=== PATIENT | female | born 1960 | race Caucasian/White ===

== ENCOUNTER 2018-10-06 10:02 | Emergency (ER) | payer OTHER, SELFPAY ==
[2018-10-06 10:04] VITALS: BP 122/72; PULSE 70; RESP 16; TEMP 36.6; O2SAT 98; BMI 20.1
--- NOTE | 2018-10-06 10:19 | ED.VISSUMM ---
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 She does indicate a prior history for neck cervical disc disorder that is not troubling her right now she points directly to the left forehead is a focal area of her pain no blood thinners no other complaints she took ibuprofen prior to arrival no numbness weakness or paresthesias no change in vision Physical Examination: [] She complains of discomfort to the left forehead area her vital signs are unremarkable General, no distress resting comfortably HEENT is generally unremarkable there is mild discomfort to the left forehead The neck is supple no adenopathy Cardiovascular, regular rate and rhythm Lungs, clear bilateral Abdomen, soft nontender Extremities, no clubbing cyanosis or edema Neurologic, awake alert answering questions appropriately moving all 4 extremities cranial nerves motor exam neurologic exam are entirely unremarkable her speech is clear and easy to understand she denies any loss of functional abilities Conversation with her discussed CT imaging she is deferred that at this time I explained the concept of concussion she will use [id number] pain meds ice follow-up with her family doctor in the [employer] system and return for change in symptoms Test Results: [] Emergency Department Course and Treatment: [] Treatment Plan: [] Disposition: [] Home stable Impression: [] Head injury This note was generated with [employer] dictation software. It may contain incorrect words, spelling, and punctuation that were not noted in review of the chart prior to signing ED Disposition - Plan for ED Patient: Chief Complaint: Head Injury Referrals: Sofie Vergara, SHER-C [Primary Care Provider] -
--- NOTE | 2018-10-06 10:22 | DCINST.ED_ITS ---
ED Disposition - Plan for ED Patient: Chief Complaint: Head Injury Instructions: ED Head Injury Closed, ED Concussion Referrals: Sofie Vergara NP-C [Primary Care Provider] - [facility] [GROUP OF PHYSICIANS] -
[2018-10-06] MEDS: Ondansetron ODT 4 MG Tablet PO (11:20)
--- NOTE | 2018-10-06 11:30 | ED.RN ---
called and talked to aditya hagen, forestry technical officer at [facility], he reports that the pt does not need drug testing.
[2018-10-06 11:34] VITALS: PULSE 62; RESP 18; O2SAT 98
--- OUTSIDE RECORDS SUMMARY | 2018-11-22 13:54 | XMS RPT_ITS ---
:1960 Author Organization [place] Care Team Providers Name Role Phone Enrico Huffman Attending Unavailable Rishi Levine Primary Care Unavailable RISHI LEVINE Attending Unavailable DARWIN CASAREZ Attending Unavailable AVIS BERNAL Attending Unavailable DARWIN CASAREZ Referring Unavailable FILE, NADIA Steinberg Attending Unavailable AVIS BERNAL Referring Unavailable FILE, NADIA Steinberg Referring Unavailable AYDE BARRAGAN Attending Unavailable AVIS BERNAL Referring Unavailable DARWIN CASAREZ Admitting Unavailable DARWIN CASAREZ Attending Unavailable DARWIN CASAREZ Referring Unavailable RISHI LEVINE Referring Unavailable WHITNEY ANGLIN (PAAbdielC) Attending Unavailable MONET SHUKLA (BANK SALES AND SERVICE MANAGER) Attending Unavailable RISHI LEVINE Referring Unavailable LORI ANDREA Referring Unavailable SHAHANA LEO (PT) Attending Unavailable RISHI LEVINE Referring Unavailable LORI ANDRAE Attending Unavailable ZULLY, LORI Ny Referring Unavailable VALENTINA ANDREAHLEEN D Referring Unavailable DARWIN CASAREZ Attending Unavailable David SAEZ (PA-C) Attending Unavailable RISHI LEVINE Referring Unavailable LORI ANDREA Attending Unavailable FILE, NADIA Steinberg Attending Unavailable GILBERT, AVIS A Referring Unavailable VALENTINA ANDREAHLCATARINA Alejandra Attending Unavailable ANDREA, LORI D Referring Unavailable ANDREA, LORI D Attending Unavailable ANDREA, LORI D Referring Unavailable PROBLEMS PROBLEMS DATE TYPE CONDITION / CODE ATTENDING STATUS SOURCE 10/15/2018 Active Varicose veins of [facility] right lower Clinic Main extremity with pain [place] / I83.811(ICD-10) Repository 10/11/2018 Unknown S09.90XA - Jwayyed, Active [place] Unspecified injury [facility], initial Hospital encounter / Repository S09.90XA(ICD-10) 08/18/2018 Active Varicose veins of [facility] bilateral lower Clinic Main extremities with [place] other complications Repository / I83.893(ICD-10) 07/23/2018 Active Encounter for [facility] screening for Clinic Main lipoid disorders / [place] Z13.220(ICD-10) Repository 04/27/2018 Active Encounter for [facility] screening mammogram Clinic Main for malignant [place] neoplasm of breast Repository / Z12.31(ICD-10) 01/29/2018 Active 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, 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 or M [facility] Main radiculopathy, [place] cervical region / Repository M47.812(ICD-10) 01/29/2018 Active Age-related [facility] osteoporosis Clinic Main without current [place] pathological Repository fracture / M81.0(ICD-10) 01/29/2018 Active Other [facility] (current) drug Clinic Main therapy / [place] Z79.899(ICD-10) Repository 01/29/2018 Active Unknown / NADIA SHELTON Active [place] UNK(Unknown) A Clinic Main [place] Repository PROCEDURES PROCEDURES No Procedure Records FoundRESULTS RESULTS PROGRESS Observed: 11/08/2018 Status: COMPLETED Source: [place] 4:52 PM CLINIC MAIN CAMPUS REPOSITORY HNO ID: [id number] Author: Lori Andrea Service: (none) Author Type: Physician Type: Progress Notes Filed: 11/16/2018 6:23 PM Note Text: This office note has been dictated. Lori Andrea DO CNOV Observed: 11/08/2018 Status: COMPLETED Source: [place] 11:45 AM CLINIC MAIN CAMPUS REPOSITORY Office Visit (VASSWS) HIRA BARCLAY ([id number]) 1960 Date Time Provider Department 11/08/18 11:45 AM LORI ANDREA During your visit today, we recorded the following information about you: Pulse Blood pressure 76/minute 120/79 Lori Andrea DO 11/15/2018 9:33 AM Signed NAME: HIRA BARCLAY CLINIC NO: [id number] DATE OF SERVICE: 11/08/2018 Subjective: Ms. Barclay is here to follow up on right greater saphenous EVLT for symptomatic varicose veins. She does have some small remaining varicose veins with overlying spider veins. Overall, she notices improvement in her symptoms. 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 Objective: Her vital signs are stable. She is in no distress. She has a healed venous access site. She does have a small varicose vein and overlying spider veins. Assessment/Plan: Symptomatic varicose veins. Ms. Barclay has some remaining symptomatic, tender small varicose veins that would benefit from ultrasound-guided sclerotherapy. Reviewed the procedure with the patient including risks, benefits and alternatives and she is agreeable and would like to proceed. We will have the office arrange and schedule. Lori Andrea D.O. KB/089 Audio #: [id number] Date Dictated: 11/08/2018 12:05:54 Date Typed: 11/12/2018 12:55:26 Date Revised: Lori Andrea DO 11/16/2018 6:23 PM Signed This office note has been dictated. Lori Andrea DO [employer] Erector: Transcribed Clinic Note (audra) ID: [id number] Author: LORI ANDREA Signed by LORI ANDREA DO on 11/15/2018 at 9:33 AM Document text: NAME: HIRA BARCLAY CLINIC NO: [id number] DATE OF SERVICE: 11/08/2018 Subjective: Ms. Barclay is here to follow up on right greater saphenous EVLT for symptomatic varicose veins. She does have some small remaining varicose veins with overlying spider veins. Overall, she notices improvement in her symptoms. 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 Objective: Her vital signs are stable. She is in no distress. She has a healed venous access site. She does have a small varicose vein and overlying spider veins. Assessment/Plan: Symptomatic varicose veins. Ms. Barclay has some remaining symptomatic, tender small varicose veins that would benefit from ultrasound-guided sclerotherapy. Reviewed the procedure with the patient including risks, benefits and alternatives and she is agreeable and would like to proceed. We will have the office arrange and schedule. Lori Andrea D.O. KB/089 Audio #: [id number] Date Dictated: 11/08/2018 12:05:54 Date Typed: 11/12/2018 12:55:26 Date Revised: Display document [id number] only Referring Provider: LORI ANDREA [[id number]] Allergies As of Date: 11/08/2018 Noted Allergy Reaction corn pollen [Other] 01/23/2009 Comments: asthma GABAPENTIN 03/17/2018 14 - Other: See Comments Comments: Dizziness HOUSE DUST 01/23/2009 12 - Shortness of Breath Comments: asthma SHAMPOOS (PARACHLOROMETAXYLENOL) 01/05/2006 2 - Rash Date Reviewed: 11/08/2018 Reviewed by: Martin Ortega RN - Fully Assessed Reason for Visit: Established Patient [175] Primary Visit Diagnosis:Symptomatic varicose veins of both lower extremities [I83.893] Prescriptions as of 11/08/2018 Sig: FLUTICASONE 250 MCG-SALMETERO* Inhale 1 Puff as instructed t* CHOLECALCIFEROL (VITAMIN D3) * Take 1 capsule by mouth once * METHOCARBAMOL 500 MG TABLET Take 1 tablet by mouth twice * NORTRIPTYLINE 10 MG CAPSULE Take 1 tab nightly for 1 week* ALENDRONATE 70 MG TABLET Take 1 tablet by mouth once e* TYLENOL ARTHRITIS PAIN ORAL Take 1 tablet by mouth three * * MULTIVITAMIN TABLET Take one(1) tablet daily. Problem List As Of Date 11/08/2018 Noted Resolved Herniated cervical disc [M50.20] INVALID FOR* More... Unspecified asthma [J45.909] INVALID FOR* Arthritis [M19.90] INVALID FOR* Osteopenia [M85.80] INVALID FOR*10/30/2017 Postmenopausal atrophic vaginitis [N95.2] INVALID FOR* Age-related osteoporosis without current pathol*INVALID FOR* More... Acute midline thoracic back pain [M54.6] INVALID FOR* Cervical spondylosis without myelopathy [M47.81*INVALID FOR* More... Bilateral occipital neuralgia [M54.81] INVALID FOR* Encounter Status:Closed by LORI ANDREA DO on 11/16/18 PROGRESS Observed: 11/08/2018 Status: COMPLETED Source: [place] 12:00 AM [facility] MAIN [place] REPOSITORY HNO ID: [id number] Author: Lori Andrea Service: Vascular Surgery Author Type: Physician Type: Progress Notes Filed: 11/15/2018 9:33 AM Note Text: NAME: HIRA BARCLAY [facility] NO: [id number] DATE OF SERVICE: 11/08/2018 Subjective: Ms. Barclay is here to follow up on right greater saphenous EVLT for symptomatic varicose veins. She does have some small remaining varicose veins with overlying spider veins. Overall, she notices improvement in her symptoms. 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 Objective: Her vital signs are stable. She is in no distress. She has a healed venous access site. She does have a small varicose vein and overlying spider veins. Assessment/Plan: Symptomatic varicose veins. Ms. Barclay has some remaining symptomatic, tender small varicose veins that would benefit from ultrasound-guided sclerotherapy. Reviewed the procedure with the patient including risks, benefits and alternatives and she is agreeable and would like to proceed. We will have the office arrange and schedule. Lori Andrea D.O. KB/089 Audio #: [id number] Date Dictated: 11/08/2018 12:05:54 Date Typed: 11/12/2018 12:55:26 Date Revised: PROGRESS Observed: 10/08/2018 Status: COMPLETED Source: [place] 12:24 PM [place] [facility] REPOSITORY O ID: [id number] Author: Lori Andrea Service: (none) Author Type: Physician Type: Progress Notes Filed: 10/08/2018 12:26 PM Note Text: Date and Start/End times of Surgery: October 08, 2018 Surgeon: Lori Andrae DO Banquet Lead(s): Sidney Means Procedure(s): EVLT ablation of the right great saphenous vein Anesthesia: Local with 1% lidocaine, and tumescence anesthesia using 40 cc of 1% lidocaine + 20 cc of 8.4% sodium bicarbonate in 1000 cc of normal saline Preoperative Diagnosis: Symptomatic varicose veins right leg. Postoperative Diagnoses: Symptomatic varicose veins right leg. Operative Indications: The patient is a 58 year old female with painful varicose veins, especially on the right leg. Noninvasive vascular laboratory studies revealed valvular incompetence in the right great saphenous vein. Options of therapy were discussed. She elected to proceed with surgery. Operative Findings: Varicose veins right leg. Procedure Narrative: The patient was seen in the preoperative area, consent was obtained, and 5 mg of Valium was given po. She was then taken to the procedure room and placed in supine position. The patient's right lower extremity was prepped with chloraprep and draped in the usual sterile fashion. Attention was first directed to the saphenous vein just at mid calf. Local anesthesia was obtained by injecting Lidocaine 1%. Under ultrasound guidance, the saphenous vein was accessed using the Micro-Access set. A 0.035 inch wire was passed through the sheath to the level of the saphenofemoral junction. The sheath was removed, and a 4-[place] sheath and dilator were passed over the guidewire to the level of the saphenofemoral junction. The guidewire and dilator were removed and the AngioDynamics EVLT gold-tipped laser fiber was passed through the sheath to the level of the saphenofemoral junction. The laser fiber was secured to the sheath. Under ultrasound guidance, the tip of the laser fiber was positioned approximately 3 cm distal to the saphenofemoral junction and just distal to the entrance of the superficial epigastric vein. Under ultrasound guidance, tumescence solution was injected into the fascial sheath containing the saphenous vein. The tumescence solution consisted of normal saline, lidocaine, and sodium bicarbonate. A total of 600 mL was injected. The laser power was then set at 7 ramos. The laser was energized and withdrawn at a rate of 1 cm per 9 seconds for the first several cm. Then, the rate of withdrawal was increased to 1 cm per 6 seconds for the remainder of the 60 cm treated. A total of 3007 joules were delivered over 430 seconds to the 60 cm of vein treated. This averaged 50 joules per cm. The sheath and laser fiber were removed. Pressure was held at the site of catheter insertion for 3 minutes. The vein was again interrogated using duplex ultrasound. The vein was completely collapsed and the orta were thickened. A Tegaderm was applied to the catheter insertion site. A 20-30 mm Hg thigh high compression stocking with a waist belt was put on the leg. The patient tolerated the procedure well. Postoperative instructions were given. Surgeon/Practitioner Performing Venous Access: Lori Andrea DO Surgeon/Practitioner Performing Ablation: Lori Andrea DO Estimated Blood Loss: none Drains: none Prosthetic Devices, Grafts, or Implants: none Specimens: none Complications: none CNOV Observed: 10/08/2018 Status: COMPLETED Source: [place] 11:00 AM [place] [facility] REPOSIT[facility] Office Visit (VASSMD) HIRA BARCLAY ([id number]) 1960 F Date Time Provider Department 10/08/18 11:00 AM LORI ANDREA VASBONG During your visit today, we recorded the following information about you: Lori Andrea DO 10/08/2018 12:26 PM Signed Date and Start/End times of Surgery: October 08, 2018 Surgeon: Lori Andrea DO Banquet Lead(s): Sidney Means Procedure(s): EVLT ablation of the right great saphenous vein Anesthesia: Local with 1% lidocaine, and tumescence anesthesia using 40 cc of 1% lidocaine + 20 cc of 8.4% sodium bicarbonate in 1000 cc of normal saline Preoperative Diagnosis: Symptomatic varicose veins right leg. Postoperative Diagnoses: Symptomatic varicose veins right leg. Operative Indications: The patient is a 58 year old female with painful varicose veins, especially on the right leg. Noninvasive vascular laboratory studies revealed valvular incompetence in the right great saphenous vein. Options of therapy were discussed. She elected to proceed with surgery. Operative Findings: Varicose veins right leg. Procedure Narrative: The patient was seen in the preoperative area, consent was obtained, and 5 mg of Valium was given po. She was then taken to the procedure room and placed in supine position. The patient's right lower extremity was prepped with chloraprep and draped in the usual sterile fashion. Attention was first directed to the saphenous vein just at mid calf. Local anesthesia was obtained by injecting Lidocaine 1%. Under ultrasound guidance, the saphenous vein was accessed using the Micro-Access set. A 0.035 inch wire was passed through the sheath to the level of the saphenofemoral junction. The sheath was removed, and a 4-[place] sheath and dilator were passed over the guidewire to the level of the saphenofemoral junction. The guidewire and dilator were removed and the AngioDynamics EVLT gold-tipped laser fiber was passed through the sheath to the level of the saphenofemoral junction. The laser fiber was secured to the sheath. Under ultrasound guidance, the tip of the laser fiber was positioned approximately 3 cm distal to the saphenofemoral junction and just distal to the entrance of the superficial epigastric vein. Under ultrasound guidance, tumescence solution was injected into the fascial sheath containing the saphenous vein. The tumescence solution consisted of normal saline, lidocaine, and sodium bicarbonate. A total of 600 mL was injected. The laser power was then set at 7 ramos. The laser was energized and withdrawn at a rate of 1 cm per 9 seconds for the first several cm. Then, the rate of withdrawal was increased to 1 cm per 6 seconds for the remainder of the 60 cm treated. A total of 3007 joules were delivered over 430 seconds to the 60 cm of vein treated. This averaged 50 joules per cm. The sheath and laser fiber were removed. Pressure was held at the site of catheter insertion for 3 minutes. The vein was again interrogated using duplex ultrasound. The vein was completely collapsed and the orta were thickened. A Tegaderm was applied to the catheter insertion site. A 20-30 mm Hg thigh high compression stocking with a waist belt was put on the leg. The patient tolerated the procedure well. Postoperative instructions were given. Surgeon/Practitioner Performing Venous Access: Lori Andrea DO Surgeon/Practitioner Performing Ablation: Lori Andrea DO Estimated Blood Loss: none Drains: none Prosthetic Devices, Grafts, or Implants: none Specimens: none Complications: none Martin Ortega RN 10/08/2018 2:42 PM Signed [facility] Vascular Surgery Laser Vein Ablation Record Hira Barclay October 08, 2018 1960 ALLERGIES: ALLERGIES Allergen Reactions - [place] Pollen [Other] asthma - Gabapentin Other: See Comments Dizziness - House Dust Shortness of Breath asthma - Shampoos [Parachlor* Rash Current Outpatient Prescriptions: ACETAMINOPHEN (TYLENOL ARTHRITIS PAIN ORAL) Take 1 tablet by mouth three times daily. alendronate (FOSAMAX) 70 mg tablet Take 1 tablet by mouth once each week. Take with a full glass of water, on an empty stomach; do NOT lie down for 30minutes. Cholecalciferol, Vitamin D3, (VITAMIN D) 1,000 unit cap Take 1 capsule by mouth once daily. diazePAM (VALIUM) 5 mg tablet Take 1-2 tablets by mouth one time only for 1 dose. fluticasone-salmeterol (ADVAIR DISKUS) 250-50 mcg/dose dsdv Inhale 1 Puff as instructed twice daily. RINSE AND GARGLE MOUTH WITH WATER AFTER EACH USE. methocarbamol (ROBAXIN) 500 mg tablet Take 1 tablet by mouth twice daily as needed. MULTIVITAMIN TAB Take one(1) tablet daily. nortriptyline (PAMELOR) 10 mg capsule Take 1 tab nightly for 1 week, then increase to 2 tabs for 1 week, and then 3 tabs. Stop at effective dose. Current Facility-Administered Medications: lidocaine 400 mg, sodium bicarbonate 8.4 % 20 mEq in NaCl 0.9% 1,000 mL solution (TUMESCENT WITHOUT EPINEPHrine) SUBCUTANEOUS ONCE Physician: Lori Andrea DO Assistants: Sidney Means RVT Informed Consent: yes Patient agrees to proceed: yes UNIVERSAL PROTOCOL / SAFETY CHECKLIST Procedure to be performed: Right Leg EVLT Sign in Communication: Completed Time Out: Team Confirms the Correct Patient, Correct Procedure, Correct Site and Site Marking, Correct Position (if applicable). Time: 11:38 Affirmation of Time Out: N/A Sign Out Discussion: Completed Leg: right Greater Saphenous vein Access site: below knee Position:Supine History and Physical date: 08/16/2018 Anything changed since History and Physical complete: No Pre-op Assessment: Ambulatory, Calm and Oriented Valium Dosage (Oral) : 5 mg Time: 11:30 Prep: chloraprep Start Time: 11:38 Lido: 1% Lidocaine Plain + 8.4% NaBicarb (5:1 mixture). Total injected: 5cc Tumescent Local Mixture:using 1% Lido 1000cc NS with 40cc 1% Lidocaine and 20cc 8.4% Sodium Bicarbonate. Total infused: 600cc Laser: Laser kit # [id number] Expiration date: 05/2021 Total procedure time in seconds: 430 sec Laser energy in joules: 3007 J Catheter length in cm: 60cm Power 7.0 ramos Laser safety checklist: Eye protection- patient: yes Eye protection- physician: yes Eye protection- nurse: Yes Eye protection- RVT: Yes Laser sign posted: Yes Laser fiber inspected: Yes Dressing: Thigh high compression stocking 30-40 mm Hg and bandaids End Time: 12:12 Post-op Assessment: ambulatory, alert and oriented and tolerated procedure with no apparent injury Discharge Instructions: Written Homegoing Instructions given AND Reviewed Verbally with Patient and/or Sleeve Setter Martin Ortega RN Referring Provider: LORI ANDREA [[id number]] Allergies As of Date: 10/08/2018 Noted Allergy Reaction corn pollen [Other] 01/23/2009 Comments: asthma GABAPENTIN 03/17/2018 14 - Other: See Comments Comments: Dizziness HOUSE DUST 01/23/2009 12 - Shortness of Breath Comments: asthma SHAMPOOS (PARACHLOROMETAXYLENOL) 01/05/2006 2 - Rash Date Reviewed: 10/08/2018 Reviewed by: Martin Ortega RN - Fully Assessed Reason for Visit: Procedure [88] Primary Visit Diagnosis:Varicose veins of right lower extremity with pain [I83.811] Order(s):lidocaine 400 mg, sodium bicarbonate 8.4 % 20 mEq in NaCl 0.9% 1,000 mL solution (TUMESCENT WITHOUT EPINEPHrine)Disp: Rfl: Prescriptions as of 10/08/2018 Sig: TYLENOL ARTHRITIS PAIN ORAL Take 1 tablet by mouth three * ALENDRONATE 70 MG TABLET Take 1 tablet by mouth once e* CHOLECALCIFEROL (VITAMIN D3) * Take 1 capsule by mouth once * FLUTICASONE 250 MCG-SALMETERO* Inhale 1 Puff as instructed t* METHOCARBAMOL 500 MG TABLET Take 1 tablet by mouth twice * * MULTIVITAMIN TABLET Take one(1) tablet daily. NORTRIPTYLINE 10 MG CAPSULE Take 1 tab nightly for 1 week* Problem List As Of Date 10/08/2018 Noted Resolved Herniated cervical disc [M50.20] INVALID FOR* More... Unspecified asthma [J45.909] INVALID FOR* Arthritis [M19.90] INVALID FOR* Osteopenia [M85.80] INVALID FOR*10/30/2017 Postmenopausal atrophic vaginitis [N95.2] INVALID FOR* Age-related osteoporosis without current pathol*INVALID FOR* More... Acute midline thoracic back pain [M54.6] INVALID FOR* Cervical spondylosis without myelopathy [M47.81*INVALID FOR* More... Bilateral occipital neuralgia [M54.81] INVALID FOR* Visit Notes: >> Martin Ortega RN Fri Oct 08, 2018 2:41 PM Status: Signed [facility] Vascular Surgery Laser Vein Ablation Record Hira Barclay October [birth year] ALLERGIES: ALLERGIES Allergen Reactions - [place] Pollen [Other] asthma - Gabapentin Other: See Comments Dizziness - House Dust Shortness of Breath asthma - Shampoos [Parachlor* Rash Current Outpatient Prescriptions: ACETAMINOPHEN (TYLENOL ARTHRITIS PAIN ORAL) Take 1 tablet by mouth three times daily. alendronate (FOSAMAX) 70 mg tablet Take 1 tablet by mouth once each week. Take with a full glass of water, on an empty stomach; do NOT lie down for 30minutes. Cholecalciferol, Vitamin D3, (VITAMIN D) 1,000 unit cap Take 1 capsule by mouth once daily. diazePAM (VALIUM) 5 mg tablet Take 1-2 tablets by mouth one time only for 1 dose. fluticasone-salmeterol (ADVAIR DISKUS) 250-50 mcg/dose dsdv Inhale 1 Puff as instructed twice daily. RINSE AND GARGLE MOUTH WITH WATER AFTER EACH USE. methocarbamol (ROBAXIN) 500 mg tablet Take 1 tablet by mouth twice daily as needed. MULTIVITAMIN TAB Take one(1) tablet daily. nortriptyline (PAMELOR) 10 mg capsule Take 1 tab nightly for 1 week, then increase to 2 tabs for 1 week, and then 3 tabs. Stop at effective dose. Current Facility-Administered Medications: lidocaine 400 mg, sodium bicarbonate 8.4 % 20 mEq in NaCl 0.9% 1,000 mL solution (TUMESCENT WITHOUT EPINEPHrine) SUBCUTANEOUS ONCE Physician: Lori Andrea DO Assistants: Sidney Means RVT Informed Consent: yes Patient agrees to proceed: yes UNIVERSAL PROTOCOL / SAFETY CHECKLIST Procedure to be performed: Right Leg EVLT Sign in Communication: Completed Time Out: Team Confirms the Correct Patient, Correct Procedure, Correct Site and Site Marking, Correct Position (if applicable). Time: 11:38 Affirmation of Time Out: N/A Sign Out Discussion: Completed Leg: right Greater Saphenous vein Access site: below knee Position:Supine History and Physical date: 08/16/2018 Anything changed since History and Physical complete: No Pre-op Assessment: Ambulatory, Calm and Oriented Valium Dosage (Oral) : 5 mg Time: 11:30 Prep: chloraprep Start Time: 11:38 Lido: 1% Lidocaine Plain + 8.4% NaBicarb (5:1 mixture). Total injected: 5cc Tumescent Local Mixture:using 1% Lido 1000cc NS with 40cc 1% Lidocaine and 20cc 8.4% Sodium Bicarbonate. Total infused: 600cc Laser: Laser kit # [id number] Expiration date: 05/2021 Total procedure time in seconds: 430 sec Laser energy in joules: 3007 J Catheter length in cm: 60cm Power 7.0 ramos Laser safety checklist: Eye protection- patient: yes Eye protection- physician: yes Eye protection- nurse: Yes Eye protection- RVT: Yes Laser sign posted: Yes Laser fiber inspected: Yes Dressing: Thigh high compression stocking 30-40 mm Hg and bandaids End Time: 12:12 Post-op Assessment: ambulatory, alert and oriented and tolerated procedure with no apparent injury Discharge Instructions: Written Homegoing Instructions given AND Reviewed Verbally with Patient and/or Sleeve Setter Martin Ortega RN Prescriptions ordered this encounter Disp Refills Start End LIDOCAINE 1% - SODIUM BICARBONATE 8.* 10/08/2018 10/08/2018 Route: SUBCUTANEOUS Encounter Status:Closed by LORI ANDREA DO on 10/08/18 EMERGENCY DEPARTMENT Observed: 10/06/2018 Status: F Source: [place] SUMMARY 5:10 PM [facility] [place] REPOSITORY [facility] Medical Records Department [address] [place] [id number] Emergency Department Summary 10/06/18 1019 MR#: [id number] Acct: [id number] Name: HIRA BARCLAY Rep #: [id number] : 1960 58 From: Enrico Huffman MD PCP: Rishi Levine MD Status: DEP ER - ER Visit Summary Date of Service: 10/06/18 Chief Complaint: [] Head injury at work left forehead History of Present Illness: The patient is a 58 F [] 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 She does indicate a prior history for neck cervical disc disorder that is not troubling her right now she points directly to the left forehead is a focal area of her pain no blood thinners no other complaints she took ibuprofen prior to arrival no numbness weakness or paresthesias no change in vision Physical Examination: [] She complains of discomfort to the left forehead area her vital signs are unremarkable General, no distress resting comfortably HEENT is generally unremarkable there is mild discomfort to the left forehead The neck is supple no adenopathy Cardiovascular, regular rate and rhythm Lungs, clear bilateral Abdomen, soft nontender Extremities, no clubbing cyanosis or edema Neurologic, awake alert answering questions appropriately moving all 4 extremities cranial nerves motor exam neurologic exam are entirely unremarkable her speech is clear and easy to understand she denies any loss of functional abilities Conversation with her discussed CT imaging she is deferred that at this time I explained the concept of concussion she will use tlod-ozl-jaeyest pain meds ice follow-up with her family doctor in the [employer] system and return for change in symptoms Test Results: [] Emergency Department Course and Treatment: [] Treatment Plan: [] Disposition: [] Home stable Impression: [] Head injury This note was generated with meevlation software. It may contain incorrect words, spelling, and punctuation that were not noted in review of the chart prior to signing ED Disposition - Plan for ED Patient: Chief Complaint: Head Injury Referrals: Sofie Vergara NP-C [Primary Care Provider] - What to do if you have Problems For any increased pain, shortness of breath, bleeding, nausea or vomiting, chest pain, or any unexpected problems, contact your Primary Care Provider. Call [facility] ([phone]) or report to the closest Emergency Room. Call 911 if necessary. 10/06/18 1710 <Electronically signed by Enrico Huffman MD> Date Enrico Huffman MD Cosigner Signature (If Indicated): Date CC: Rishi Levine MD DISCHARGE INSTRUCTION Observed: 10/06/2018 Status: F Source: [place] 10:22 AM [facility] Medical Records Department [address] [place] [id number] Discharge Instruction 10/06/18 1021 MR#: [id number] Acct: [id number] Name: HIRA BARCLAY Rep #: [id number] : 1960 58 From: Enrico Huffman MD PCP: Sofie Vergara NP Status: PRE ER ED Disposition - Plan for ED Patient: Chief Complaint: Head Injury Instructions: ED Head Injury Closed, ED Concussion Referrals: Sofie Vergara NP-C [Primary Care Provider] - [facility] [GROUP OF PHYSICIANS] - What to do if you have Problems For any increased pain, shortness of breath, bleeding, nausea or vomiting, chest pain, or any unexpected problems, contact your Primary Care Provider. Call [facility] ([phone]) or report to the closest Emergency Room. Call 911 if necessary. 10/06/18 1022 <Electronically signed by Enrico Huffman MD> Date Enrico Huffman MD Cosigner Signature (If Indicated): Date CC: Sofie Vergara NP PROGRESS Observed: 08/31/2018 Status: COMPLETED Source: [place] 11:49 AM [facility] [place] REPOSIT[facility] HNO ID: [id number] Author: Darwin Casarez Service: (none) Author Type: Physician Type: Progress Notes Filed: 08/31/2018 12:15 PM Note Text: Follow-up Visit [facility] August 31, 2018 CC: Cervical spine pain headache SUBJECTIVE: Patient returns today after having undergone bilateral C5-C6 intraarticular facet joint injection. Day of injection patient was better, Pain diary shows preprocedure leash her pain was 2 out of 10. Post procedure pain. Since last visit: She continues to deny bowel/bladder incontinence, denies fever, denies night pain, denies unintentional weight loss, denies clumsiness of hands or dropping things, denies clumsiness of feet, tripping or falling. Denies any constitutional or myelopathic symptomatology. No interval change in PMHX, PSHX, Allergies, FamHx or ROS. PMH: PAST MEDICAL HISTORY Diagnosis Date - Cervical disc herniation c5-c6, C6-C7 - Occipital neuralgia - Osteoporosis - PMH - PAST MEDICAL HISTORY OF ARTHRITIS - Unspecified asthma(493.90) PSH: PAST SURGICAL HISTORY Procedure Laterality Date - DANDC, DIAG AND/OR THERAPEUTIC N/A - PAST SURGICAL HISTORY OF wisdom teeth - PAST SURGICAL HISTORY OF 06/09/14 [facility] Arthroplasty left hand Social history: Social History Marital status: Spouse name: Manjeet Years of education: 12+ Number of children: 0 Occupational History Occupation Employer Comment [employer] Social History Main Topics Smoking status: Never Smoker Smokeless tobacco: Never Used Alcohol use: Yes Comment: RARE Drug use: No Sexual activity: Not Currently Fam history: FAMILY HISTORY Problem Relation Age of Onset - Hypertension Mother - Dementia Mother - Cancer Father PROSTATE - other (aortic valve) Father 2018 - Thyroid Cancer Sister - Thyroid Cancer Sister Reviewed and updated with patient. ALLERGIES: [place] Pollen [Other]; Gabapentin; House Dust; Shampoos [Parachlorometaxylenol] DATA REVIEW: Review of imaging from cervical procedure shows evidence of intraocular injection bilaterally C5-C6 OBJECTIVE: Vital Signs: BP 103/65 Pulse 81 Resp 16 LMP 02/18/2010 ASSESSMENT: General:Patient in no apparent distress, afebrile, well appearing Lungs:No labored breathing, symetric chest excursion, no tachypnia Heart:No lower limb edema, pulses palpable and symetric dorsalis pedis and radial, no cyanosis Abdominal:Non distended abdomen Neuro:Reflexes intact bilateral lower limbs Strength intact in bilateral upper limbs Sensation intact in bilateral upper limbs Reflexes intact in bilateral upper limbs Muscular:Tenderness to palpation of bilateral Cervical paraspinal muscles And palpation from the mid to upper cervical spine. Pain with forward flexion the cervical spine and chin to chest Skin:Head, neck, trunk, and extremities dry, intact and without lesions. DX: Spondylosis of cervical region without myelopathy or radiculopathy (primary encounter diagnosis) PLAN: 1) Patient without significantly impressive results from her recent cervical facet joint injection. Her pain seems to be situated from the mid to upper cervical spine. Has continued to follow-up with headache specialist. Was started on nortriptyline which reports has offered her relief. 2) Less than significant improvement with injection. Could consider additional injection. There is evidence of C7-T1 arthropathy Darwin Casarez DO, MPH Staff Physician [facility] This document has been created with the use of voice recognition technology. It may contain inaccuracies: misspellings, inaccurate syntax or word sense that escaped review. DIANA Observed: 08/31/2018 Status: COMPLETED Source: [place] 10:10 AM [facility] Office Visit (SPMEST) DENYHIRA ([id number]) 1960 F Date Time Provider Department 08/31/18 10:10 AM DARWIN CASAREZ During your visit today, we recorded the following information about you: Pulse Respiration Blood pressure 81/minute 16/minute 103/65 June Grewal [place] 08/31/2018 11:47 AM Signed Chief Complaint: Patient returns today s/p CORI C5-C6 Facets. Patient states they are worse since the injection. Patient's preprocedure pain level was 2 From 1 to 10. 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 Day of injection patient was better, Pain diary shows preprocedure leash her pain was 2 out of 10. Post procedure pain. Since last visit: She continues to deny bowel/bladder incontinence, denies fever, denies night pain, denies unintentional weight loss, denies clumsiness of hands or dropping things, denies clumsiness of feet, tripping or falling. Denies any constitutional or myelopathic symptomatology. No interval change in PMHX, PSHX, Allergies, FamHx or ROS. PMH: PAST MEDICAL HISTORY Diagnosis Date - Cervical disc herniation c5-c6, C6-C7 - Occipital neuralgia - Osteoporosis - PMH - PAST MEDICAL HISTORY OF ARTHRITIS - Unspecified asthma(493.90) PSH: PAST SURGICAL HISTORY Procedure Laterality Date - DANDC, DIAG AND/OR THERAPEUTIC N/A - PAST SURGICAL HISTORY OF wisdom teeth - PAST SURGICAL HISTORY OF 06/09/14 [facility] Arthroplasty left hand Social history: Social History Marital status: Spouse name: Manjeet Years of education: 12+ Number of children: 0 Occupational History Occupation Employer Comment [employer] Social History Main Topics Smoking status: Never Smoker Smokeless tobacco: Never Used Alcohol use: Yes Comment: RARE Drug use: No Sexual activity: Not Currently Fam history: FAMILY HISTORY Problem Relation Age of Onset - Hypertension Mother - Dementia Mother - Cancer Father PROSTATE - other (aortic valve) Father 2018 - Thyroid Cancer Sister - Thyroid Cancer Sister Reviewed and updated with patient. ALLERGIES: [place] Pollen [Other]; Gabapentin; House Dust; Shampoos [Parachlorometaxylenol] DATA REVIEW: Review of imaging from cervical procedure shows evidence of intraocular injection bilaterally C5-C6 OBJECTIVE: Vital Signs: BP 103/65 Pulse 81 Resp 16 LMP 02/18/2010 ASSESSMENT: General:Patient in no apparent distress, afebrile, well appearing Lungs:No labored breathing, symetric chest excursion, no tachypnia Heart:No lower limb edema, pulses palpable and symetric dorsalis pedis and radial, no cyanosis Abdominal:Non distended abdomen Neuro:Reflexes intact bilateral lower limbs Strength intact in bilateral upper limbs Sensation intact in bilateral upper limbs Reflexes intact in bilateral upper limbs Muscular:Tenderness to palpation of bilateral Cervical paraspinal muscles And palpation from the mid to upper cervical spine. Pain with forward flexion the cervical spine and chin to chest Skin:Head, neck, trunk, and extremities dry, intact and without lesions. DX: Spondylosis of cervical region without myelopathy or radiculopathy (primary encounter diagnosis) PLAN: 1) Patient without significantly impressive results from her recent cervical facet joint injection. Her pain seems to be situated from the mid to upper cervical spine. Has continued to follow-up with headache specialist. Was started on nortriptyline which reports has offered her relief. 2) Less than significant improvement with injection. Could consider additional injection. There is evidence of C7-T1 arthropathy Darwin Casarez DO, MPH Staff Physician [facility] This document has been created with the use of voice recognition technology. It may contain inaccuracies: misspellings, inaccurate syntax or word sense that escaped review. Referring Provider: SELF [[id number]] Allergies As of Date: 08/31/2018 Noted Allergy Reaction corn pollen [Other] 01/23/2009 Comments: asthma GABAPENTIN 03/17/2018 14 - Other: See Comments Comments: Dizziness HOUSE DUST 01/23/2009 12 - Shortness of Breath Comments: asthma SHAMPOOS (PARACHLOROMETAXYLENOL) 01/05/2006 2 - Rash Date Reviewed: 08/31/2018 Reviewed by: June Leos - Fully Assessed Reason for Visit: post [Other] Primary Visit Diagnosis:Spondylosis of cervical region without myelopathy or radiculopathy [M47.812] Prescriptions as of 08/31/2018 Sig: FLUTICASONE 250 MCG-SALMETERO* Inhale 1 Puff as instructed t* CHOLECALCIFEROL (VITAMIN D3) * Take 1 capsule by mouth once * METHOCARBAMOL 500 MG TABLET Take 1 tablet by mouth twice * NORTRIPTYLINE 10 MG CAPSULE Take 1 tab nightly for 1 week* ALENDRONATE 70 MG TABLET Take 1 tablet by mouth once e* TYLENOL ARTHRITIS PAIN ORAL Take 1 tablet by mouth three * * MULTIVITAMIN TABLET Take one(1) tablet daily. Problem List As Of Date 08/31/2018 Noted Resolved Herniated cervical disc [M50.20] INVALID FOR* More... Unspecified asthma [J45.909] INVALID FOR* Arthritis [M19.90] INVALID FOR* Osteopenia [M85.80] INVALID FOR*10/30/2017 Postmenopausal atrophic vaginitis [N95.2] INVALID FOR* Age-related osteoporosis without current pathol*INVALID FOR* More... Acute midline thoracic back pain [M54.6] INVALID FOR* Cervical spondylosis without myelopathy [M47.81*INVALID FOR* More... Bilateral occipital neuralgia [M54.81] INVALID FOR* Visit Notes: >> June Leos Tue Aug 31, 2018 10:58 AM Status: Signed Chief Complaint: Patient returns today s/p CORI C5-C6 Facets. Patient states they are worse since the injection. Patient's preprocedure pain level was 2 From 1 to 10. Post Procedure Pain level at: 30 minutes 2 1 Hours 2 2 Hours 2 3 Hours 2 4 Hours 2 5 Hours 2 6 Hours 2 7 Hours 2 8 Hours 2 Group Home Pain Diary: 1 Day better 2 Days worse 1 Week 2 Weeks June Leos Encounter Status:Closed by DARWIN CASAREZ DO on 08/31/18 PROGRESS Observed: 08/23/2018 Status: COMPLETED Source: [place] 9:33 AM [facility] [place] RE[facility] O ID: [id number] Author: Lori Andrea Service: (none) Author Type: Physician Type: Progress Notes Filed: 08/23/2018 9:37 AM Note Text: VASCULAR SURGERY ESTABLISHED PATIENT SERVICE DATE: 08/23/2018 SERVICE TIME: 9:34 AM PRIMARY CARE PHYSICIAN: Rishi Levine MD SUBJECTIVE HISTORY OF PRESENT ILLNESS: Patient returns for a follow up after venous reflux testing for symptomatic varicose veins. 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 Symptoms impact day to day activity requiring her to elevate her legs. She has been using compression stockings without significant impact in symptoms PAST MEDICAL/SURGICAL/FAMILY/SOCIAL HISTORY PAST MEDICAL HISTORY Diagnosis Date - Cervical disc herniation c5-c6, C6-C7 - Occipital neuralgia - Osteoporosis - PMH - PAST MEDICAL HISTORY OF ARTHRITIS - Unspecified asthma(493.90) PAST SURGICAL HISTORY Procedure Laterality Date - DANDC, DIAG AND/OR THERAPEUTIC N/A - PAST SURGICAL HISTORY OF wisdom teeth - PAST SURGICAL HISTORY OF 06/09/14 [facility] Arthroplasty left hand FAMILY HISTORY Problem Relation Age of Onset - Hypertension Mother - Dementia Mother - Cancer Father PROSTATE - other (aortic valve) Father 2018 - Thyroid Cancer Sister - Thyroid Cancer Sister SOCIAL HISTORYSocial History Marital status: Spouse name: Manjeet Years of education: 12+ Number of children: 0 Occupational History Occupation Employer Comment [employer] Social History Main Topics Smoking status: Never Smoker Smokeless tobacco: Never Used Alcohol use: Yes Comment: RARE Drug use: No Sexual activity: Not Currently MEDICATIONS/ALLERGIES Current Outpatient Prescriptions: fluticasone-salmeterol (ADVAIR DISKUS) 250-50 mcg/dose dsdv Inhale 1 Puff as instructed twice daily. RINSE AND GARGLE MOUTH WITH WATER AFTER EACH USE. Disp: 3 Inhaler Rfl: 1 Cholecalciferol, Vitamin D3, (VITAMIN D) 1,000 unit cap Take 1 capsule by mouth once daily. Disp: Rfl: methocarbamol (ROBAXIN) 500 mg tablet Take 1 tablet by mouth twice daily as needed. Disp: 20 tablet Rfl: 0 nortriptyline (PAMELOR) 10 mg capsule Take 1 tab nightly for 1 week, then increase to 2 tabs for 1 week, and then 3 tabs. Stop at effective dose. Disp: 90 capsule Rfl: 11 alendronate (FOSAMAX) 70 mg tablet Take 1 tablet by mouth once each week. Take with a full glass of water, on an empty stomach; do NOT lie down for 30minutes. Disp: 12 tablet Rfl: 3 ACETAMINOPHEN (TYLENOL ARTHRITIS PAIN ORAL) Take 1 tablet by mouth three times daily. Disp: Rfl: MULTIVITAMIN TAB Take one(1) tablet daily. Disp: Rfl: 0 No current facility-administered medications for this visit. ALLERGIES Allergen Reactions - [place] Pollen [Other] asthma - Gabapentin Other: See Comments Dizziness - House Dust Shortness of Breath asthma - Shampoos [Parachlor* Rash OBJECTIVE LMP 02/18/2010 Gen- no distress Ext- right distal pretibial and foot varicose veins Venous reflux testing Right greater saphenous with reflux, distal thigh saphenous 7.9mm in diameter Left deep vein reflux ASSESSMENT Symptomatic varicose veins PLAN/RECOMMENDATIONS Reviewed findings with Ms. Barclay Recommend right GSV EVLT with post procedure sclerotherapy and possible stab phlebectomy Reviewed procedure and she is agreeable Will have office arrange and schedule SIGNATURE: Lori Andrea DO PATIENT NAME: Hira Hernandez Deny DATE: August 23, 2018 TIME: 9:34 AM CNOV Observed: 08/23/2018 Status: COMPLETED Source: [place] 9:00 AM [facility] Office Visit (VASSWS) HIRA BARCLAY ([id number]) 1960 F Date Time Provider Department 08/23/18 9:00 AM LORI ANDREA VASSWS During your visit today, we recorded the following information about you: Lori Andrea DO 08/23/2018 9:37 AM Signed VASCULAR SURGERY ESTABLISHED PATIENT SERVICE DATE: 08/23/2018 SERVICE TIME: 9:34 AM PRIMARY CARE PHYSICIAN: Rishi Levine MD SUBJECTIVE HISTORY OF PRESENT ILLNESS: Patient returns for a follow up after venous reflux testing for symptomatic varicose veins. 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 Symptoms impact day to day activity requiring her to elevate her legs. She has been using compression stockings without significant impact in symptoms PAST MEDICAL/SURGICAL/FAMILY/SOCIAL HISTORY PAST MEDICAL HISTORY Diagnosis Date - Cervical disc herniation c5-c6, C6-C7 - Occipital neuralgia - Osteoporosis - PMH - PAST MEDICAL HISTORY OF ARTHRITIS - Unspecified asthma(493.90) PAST SURGICAL HISTORY Procedure Laterality Date - DANDC, DIAG AND/OR THERAPEUTIC N/A - PAST SURGICAL HISTORY OF wisdom teeth - PAST SURGICAL HISTORY OF 06/09/14 [facility] Arthroplasty left hand FAMILY HISTORY Problem Relation Age of Onset - Hypertension Mother - Dementia Mother - Cancer Father PROSTATE - other (aortic valve) Father 2018 - Thyroid Cancer Sister - Thyroid Cancer Sister SOCIAL HISTORYSocial History Marital status: Spouse name: Manjeet Years of education: 12+ Number of children: 0 Occupational History Occupation Employer Comment [employer] Social History Main Topics Smoking status: Never Smoker Smokeless tobacco: Never Used Alcohol use: Yes Comment: RARE Drug use: No Sexual activity: Not Currently MEDICATIONS/ALLERGIES Current Outpatient Prescriptions: fluticasone-salmeterol (ADVAIR DISKUS) 250-50 mcg/dose dsdv Inhale 1 Puff as instructed twice daily. RINSE AND GARGLE MOUTH WITH WATER AFTER EACH USE. Disp: 3 Inhaler Rfl: 1 Cholecalciferol, Vitamin D3, (VITAMIN D) 1,000 unit cap Take 1 capsule by mouth once daily. Disp: Rfl: methocarbamol (ROBAXIN) 500 mg tablet Take 1 tablet by mouth twice daily as needed. Disp: 20 tablet Rfl: 0 nortriptyline (PAMELOR) 10 mg capsule Take 1 tab nightly for 1 week, then increase to 2 tabs for 1 week, and then 3 tabs. Stop at effective dose. Disp: 90 capsule Rfl: 11 alendronate (FOSAMAX) 70 mg tablet Take 1 tablet by mouth once each week. Take with a full glass of water, on an empty stomach; do NOT lie down for 30minutes. Disp: 12 tablet Rfl: 3 ACETAMINOPHEN (TYLENOL ARTHRITIS PAIN ORAL) Take 1 tablet by mouth three times daily. Disp: Rfl: MULTIVITAMIN TAB Take one(1) tablet daily. Disp: Rfl: 0 No current facility-administered medications for this visit. ALLERGIES Allergen Reactions - [place] Pollen [Other] asthma - Gabapentin Other: See Comments Dizziness - House Dust Shortness of Breath asthma - Shampoos [Parachlor* Rash OBJECTIVE LMP 02/18/2010 Gen- no distress Ext- right distal pretibial and foot varicose veins Venous reflux testing Right greater saphenous with reflux, distal thigh saphenous 7.9mm in diameter Left deep vein reflux ASSESSMENT Symptomatic varicose veins PLAN/RECOMMENDATIONS Reviewed findings with Ms. Barclay Recommend right GSV EVLT with post procedure sclerotherapy and possible stab phlebectomy Reviewed procedure and she is agreeable Will have office arrange and schedule SIGNATURE: Lori Andrea DO PATIENT NAME: Hira Barclay DATE: August 23, 2018 TIME: 9:34 AM Referring Provider: LORI ANDREA [[id number]] Allergies As of Date: 08/23/2018 Noted Allergy Reaction corn pollen [Other] 01/23/2009 Comments: asthma GABAPENTIN 03/17/2018 14 - Other: See Comments Comments: Dizziness HOUSE DUST 01/23/2009 12 - Shortness of Breath Comments: asthma SHAMPOOS (PARACHLOROMETAXYLENOL) 01/05/2006 2 - Rash Date Reviewed: 08/23/2018 Reviewed by: Martin Ortega RN - Fully Assessed Reason for Visit: Established Patient [175] Primary Visit Diagnosis:Symptomatic varicose veins of both lower extremities [I83.893] Prescriptions as of 08/23/2018 Sig: FLUTICASONE 250 MCG-SALMETERO* Inhale 1 Puff as instructed t* CHOLECALCIFEROL (VITAMIN D3) * Take 1 capsule by mouth once * METHOCARBAMOL 500 MG TABLET Take 1 tablet by mouth twice * NORTRIPTYLINE 10 MG CAPSULE Take 1 tab nightly for 1 week* ALENDRONATE 70 MG TABLET Take 1 tablet by mouth once e* TYLENOL ARTHRITIS PAIN ORAL Take 1 tablet by mouth three * * MULTIVITAMIN TABLET Take one(1) tablet daily. Problem List As Of Date 08/23/2018 Noted Resolved Herniated cervical disc [M50.20] INVALID FOR* More... Unspecified asthma [J45.909] INVALID FOR* Arthritis [M19.90] INVALID FOR* Osteopenia [M85.80] INVALID FOR*10/30/2017 Postmenopausal atrophic vaginitis [N95.2] INVALID FOR* Age-related osteoporosis without current pathol*INVALID FOR* More... Acute midline thoracic back pain [M54.6] INVALID FOR* Cervical spondylosis without myelopathy [M47.81*INVALID FOR* More... Bilateral occipital neuralgia [M54.81] INVALID FOR* Follow-up and Disposition History Recorded Encounter Status:Closed by LORI ANDREA DO on 08/23/18 PROGRESS Observed: 08/17/2018 Status: COMPLETED Source: [place] 12:49 PM [facility] HNO ID: [id number] Author: David Sauceda ([facility]) Se Service: (none) Author Type: Physician Banquet Lead Type: Progress Notes Filed: 08/17/2018 5:27 PM Note Text: 58 year old female with c/o here to review labs from June. Also would chance a flu shots. 1. Currently in treatment for osteoporosis. 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 2. In treatent for headaches. On nortriptyline. Hasn't had to use muscle relaxers. 3. Seasonal allergies; corn pollen. Using advair routinely. HISTORIES FAMILY HISTORY Problem Relation Age of Onset - Hypertension Mother - Dementia Mother - Cancer Father PROSTATE - other (aortic valve) Father 2018 - Thyroid Cancer Sister - Thyroid Cancer Sister PAST MEDICAL HISTORY Diagnosis Date - Cervical disc herniation c5-c6, C6-C7 - Occipital neuralgia - Osteoporosis - PMH - PAST MEDICAL HISTORY OF ARTHRITIS - Unspecified asthma(493.90) PAST SURGICAL HISTORY Procedure Laterality Date - DANDC, DIAG AND/OR THERAPEUTIC N/A - PAST SURGICAL HISTORY OF wisdom teeth - PAST SURGICAL HISTORY OF 06/09/14 [facility] Arthroplasty left hand Social History Marital status: Spouse name: Manjeet Years of education: 12+ Number of children: 0 Occupational History Occupation Employer Comment [employer] Social History Main Topics Smoking status: Never Smoker Smokeless tobacco: Never Used Alcohol use: Yes Comment: RARE Drug use: No Sexual activity: Not Currently ACTIVE PROBLEM LIST Herniated Cervical Disc Unspecified Asthma(493.90) Arthritis Postmenopausal Atrophic Vaginitis Age-Related Osteoporosis Without Current Pathological Fracture Acute Midline Thoracic Back Pain Cervical Spondylosis Without Myelopathy Bilateral Occipital Neuralgia Current Outpatient Prescriptions: Cholecalciferol, Vitamin D3, (VITAMIN D) 1,000 unit cap Take 1 capsule by mouth once daily. Disp: Rfl: methocarbamol (ROBAXIN) 500 mg tablet Take 1 tablet by mouth twice daily as needed. Disp: 20 tablet Rfl: 0 nortriptyline (PAMELOR) 10 mg capsule Take 1 tab nightly for 1 week, then increase to 2 tabs for 1 week, and then 3 tabs. Stop at effective dose. Disp: 90 capsule Rfl: 11 alendronate (FOSAMAX) 70 mg tablet Take 1 tablet by mouth once each week. Take with a full glass of water, on an empty stomach; do NOT lie down for 30minutes. Disp: 12 tablet Rfl: 3 ACETAMINOPHEN (TYLENOL ARTHRITIS PAIN ORAL) Take 1 tablet by mouth three times daily. Disp: Rfl: fluticasone/salmeterol(ADVAIR DISKUS 250 MCG-50 MCG/DOSE FOR INHALATION) Take one(1) inhalation twice daily; rinse and gargle mouth with water after each use. Disp: Rfl: 0 MULTIVITAMIN TAB Take one(1) tablet daily. Disp: Rfl: 0 No current facility-administered medications for this visit. HEPATITIS C SCREENING due on 2005 INFLUENZA(1) due on 06/26/2018 EXAM: BP 110/80 Pulse 80 Temp 36.1 ?C (97 ?F) (Tympanic) Resp 20 Wt 49 kg (108 lb) LMP 02/18/2010 BMI 19.72 kg/m? Pleasant adult woman in no acute distress. Alert and oriented all spheres. Normal affect and cognition. Speech normal. No deficits to learning or comprehension. Skin warm, dry, pink to lips and nailbeds. Normal turgor. Respirations regular and unlabored. HEENT WNL. TM's clear. Nose and oropharynx free from injection or lesion. No cervical lymph nodes. Thyroid non-tender, no masses Chest CTA. HRRR without murmur or gallop. Extrem: no clubbing, cyanosis, edema. Extremities are warm and pink with prompt capillary refill. ASSESSMENT/PLAN: 1. Need for vaccination - ICD9: V05.9, ICD10: Z23 (primary diagnosis) - INFLUENZA VACCINE QUADRIVALENT AGE 3 YRS PLUS + IM 2. Moderate persistent asthma, uncomplicated - ICD9: 493.90, ICD10: J45.40 Moderate persistent Asthma stable - Avoidance of triggers recommended - FLUTICASONE 250 MCG-SALMETEROL 50 MCG/DOSE BLISTR POWDR FOR INHALATION 3. Cervical spondylosis without myelopathy - ICD9: 721.0, ICD10: M47.812 4. Bilateral occipital neuralgia - ICD9: 723.8, ICD10: M54.81 Stable: improved with Pamelor significantly 5. Age-related osteoporosis without current pathological fracture - ICD9: 733.01, ICD10: M81.0 - Reviewed the need for Calcium and Vitamin D supplements and weight bearing exercise as tolerated David Saez PA-C PROGRESS Observed: 08/17/2018 Status: COMPLETED Source: [place] 12:39 PM [facility] [place] REPOSITORY HNO ID: [id number] Author: Carlita Robledo LPN Service: (none) Author Type: (none) Type: Progress Notes Filed: 08/17/2018 5:27 PM Note Text: 58 year old female here for INACTIVATED INFLUENZA VACCINE. 6205-0800 Season Patient is identified by name and date of : Yes [] CONTRAINDICATIONS color enhanced section Age less than 6 months? No Allergy to eggs, chicken, chicken feathers, or chicken dander? No Allergy to thimerosal (a preservative) or formaldehyde, gelatin? No History of severe reaction to any vaccine component or a previous dose of influenza vaccination? No History of Guillain-Havelock Syndrome within 6 weeks after a previous influenza vaccine? No Patient is not moderately or severely ill? No Current temperature greater or equal to 100.4F? No History of Bone Marrow Transplant prior 6 months or solid organ transplant in the past 3 months ? No History of fainting after a prior injection or medical procedure? No- ? If patient has fainted in the past, the CDC recommends sitting or lying down for 15 minutes after the vaccination. [] VERIFICATION color enhanced section Was the answer Yes for any of the above contraindications? No contraindications present. Acceptable to proceed with vaccine. Patient/guardian agrees the above answers are true to the best of their knowledge? Yes Flu vaccine information sheet given? Yes See immunization activity in [facility] for details of immunizations adminstered today. Patient age: [age] year old For The 5796-0383 Flu Season 6-35 months old: Fluzone 0.25 ml - IM (Preservative Free) 3 years of age: Fluzone 0.5 ml - IM (Preservative Free) 3 years and older: Fluzone 0.5 ml- IM-(with Preservatives) 65+ years old: 2-49 years old Fluzone High-Dose 0.5 ml - IM (Preservative Free) FLUMIST- intranasal REMEMBER: If patient is less than 9 years of age and this is the first vaccine of Influenza to be received in any flu season, they should receive a second dose in one months time. CNOV Observed: 08/17/2018 Status: COMPLETED Source: [place] 11:40 AM [facility] REPOS[facility] Office Visit (FAMPWS) HIRA BARCLAY ([id number]) 1960 F Date Time Provider Department 08/17/18 11:40 AM [facility] During your visit today, we recorded the following information about you: Temperature Pulse Respiration Blood pressure 97 degrees 80/minute 20/minute 110/80 Weight 49 kg Carlita Venkat GUZMAN 08/17/2018 5:27 PM Signed 58 year old female here for INACTIVATED INFLUENZA VACCINE. Season Patient is identified by name and date of : Yes [] CONTRAINDICATIONS color enhanced section Age less than 6 months? No Allergy to eggs, chicken, chicken feathers, or chicken dander? No Allergy to thimerosal (a preservative) or formaldehyde, gelatin? No History of severe reaction to any vaccine component or a previous dose of influenza vaccination? No History of Guillain-Havelock Syndrome within 6 weeks after a previous influenza vaccine? No Patient is not moderately or severely ill? No Current temperature greater or equal to 100.4F? No History of Bone Marrow Transplant prior 6 months or solid organ transplant in the past 3 months ? No History of fainting after a prior injection or medical procedure? No- ? If patient has fainted in the past, the CDC recommends sitting or lying down for 15 minutes after the vaccination. [] VERIFICATION color enhanced section Was the answer Yes for any of the above contraindications? No contraindications present. Acceptable to proceed with vaccine. Patient/guardian agrees the above answers are true to the best of their knowledge? Yes Flu vaccine information sheet given? Yes See immunization activity in [facility] for details of immunizations adminstered today. Patient age: [age] year old For The 8606-6758 Flu Season 6-35 months old: Fluzone 0.25 ml - IM (Preservative Free) 3 years of age: Fluzone 0.5 ml - IM (Preservative Free) 3 years and older: Fluzone 0.5 ml- IM-(with Preservatives) 65+ years old: 2-49 years old Fluzone High-Dose 0.5 ml - IM (Preservative Free) FLUMIST- intranasal REMEMBER: If patient is less than 9 years of age and this is the first vaccine of Influenza to be received in any flu season, they should receive a second dose in one months time. David Saez PA-C 08/17/2018 5:27 PM Signed 58 year old female with c/o here to review labs from June. Also would chance a flu shots. 1. Currently in treatment for osteoporosis. 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 2. In treatent for headaches. On nortriptyline. Hasn't had to use muscle relaxers. 3. Seasonal allergies; corn pollen. Using advair routinely. HISTORIES FAMILY HISTORY Problem Relation Age of Onset - Hypertension Mother - Dementia Mother - Cancer Father PROSTATE - other (aortic valve) Father 2018 - Thyroid Cancer Sister - Thyroid Cancer Sister PAST MEDICAL HISTORY Diagnosis Date - Cervical disc herniation c5-c6, C6-C7 - Occipital neuralgia - Osteoporosis - PMH - PAST MEDICAL HISTORY OF ARTHRITIS - Unspecified asthma(493.90) PAST SURGICAL HISTORY Procedure Laterality Date - DANDC, DIAG AND/OR THERAPEUTIC N/A - PAST SURGICAL HISTORY OF wisdom teeth - PAST SURGICAL HISTORY OF 06/09/14 [facility] Arthroplasty left hand Social History Marital status: Spouse name: Manjeet Years of education: 12+ Number of children: 0 Occupational History Occupation Employer Comment [employer] Social History Main Topics Smoking status: Never Smoker Smokeless tobacco: Never Used Alcohol use: Yes Comment: RARE Drug use: No Sexual activity: Not Currently ACTIVE PROBLEM LIST Herniated Cervical Disc Unspecified Asthma(493.90) Arthritis Postmenopausal Atrophic Vaginitis Age-Related Osteoporosis Without Current Pathological Fracture Acute Midline Thoracic Back Pain Cervical Spondylosis Without Myelopathy Bilateral Occipital Neuralgia Current Outpatient Prescriptions: Cholecalciferol, Vitamin D3, (VITAMIN D) 1,000 unit cap Take 1 capsule by mouth once daily. Disp: Rfl: methocarbamol (ROBAXIN) 500 mg tablet Take 1 tablet by mouth twice daily as needed. Disp: 20 tablet Rfl: 0 nortriptyline (PAMELOR) 10 mg capsule Take 1 tab nightly for 1 week, then increase to 2 tabs for 1 week, and then 3 tabs. Stop at effective dose. Disp: 90 capsule Rfl: 11 alendronate (FOSAMAX) 70 mg tablet Take 1 tablet by mouth once each week. Take with a full glass of water, on an empty stomach; do NOT lie down for 30minutes. Disp: 12 tablet Rfl: 3 ACETAMINOPHEN (TYLENOL ARTHRITIS PAIN ORAL) Take 1 tablet by mouth three times daily. Disp: Rfl: fluticasone/salmeterol(ADVAIR DISKUS 250 MCG-50 MCG/DOSE FOR INHALATION) Take one(1) inhalation twice daily; rinse and gargle mouth with water after each use. Disp: Rfl: 0 MULTIVITAMIN TAB Take one(1) tablet daily. Disp: Rfl: 0 No current facility-administered medications for this visit. HEPATITIS C SCREENING due on 2005 INFLUENZA(1) due on 06/26/2018 EXAM: BP 110/80 Pulse 80 Temp 36.1 ?C (97 ?F) (Tympanic) Resp 20 Wt 49 kg (108 lb) LMP 02/18/2010 BMI 19.72 kg/m? Pleasant adult woman in no acute distress. Alert and oriented all spheres. Normal affect and cognition. Speech normal. No deficits to learning or comprehension. Skin warm, dry, pink to lips and nailbeds. Normal turgor. Respirations regular and unlabored. HEENT WNL. TM's clear. Nose and oropharynx free from injection or lesion. No cervical lymph nodes. Thyroid non-tender, no masses Chest CTA. HRRR without murmur or gallop. Extrem: no clubbing, cyanosis, edema. Extremities are warm and pink with prompt capillary refill. ASSESSMENT/PLAN: 1. Need for vaccination - ICD9: V05.9, ICD10: Z23 (primary diagnosis) - INFLUENZA VACCINE QUADRIVALENT AGE 3 YRS PLUS + IM 2. Moderate persistent asthma, uncomplicated - ICD9: 493.90, ICD10: J45.40 Moderate persistent Asthma stable - Avoidance of triggers recommended - FLUTICASONE 250 MCG-SALMETEROL 50 MCG/DOSE BLISTR POWDR FOR INHALATION 3. Cervical spondylosis without myelopathy - ICD9: 721.0, ICD10: M47.812 4. Bilateral occipital neuralgia - ICD9: 723.8, ICD10: M54.81 Stable: improved with Pamelor significantly 5. Age-related osteoporosis without current pathological fracture - ICD9: 733.01, ICD10: M81.0 - Reviewed the need for Calcium and Vitamin D supplements and weight bearing exercise as tolerated David Saez PA-C Referring Provider: RISHI LEVINE [[id number]] Allergies As of Date: 08/17/2018 Noted Allergy Reaction corn pollen [Other] 01/23/2009 Comments: asthma GABAPENTIN 03/17/2018 14 - Other: See Comments Comments: Dizziness HOUSE DUST 01/23/2009 12 - Shortness of Breath Comments: asthma SHAMPOOS (PARACHLOROMETAXYLENOL) 01/05/2006 2 - Rash Date Reviewed: 08/17/2018 Reviewed by: Carlita Robledo LPN - Fully Assessed Reason for Visit: Results [95] Cmt: labs Imm/Inj [58] Cmt: Flu Vaccine Refill Request [94] Cmt: for Adviar Reason For Visit History Recorded Primary Visit Diagnosis:Need for vaccination [Z23] Other Visit Diagnoses:Moderate persistent asthma, uncomplicated [J45.40] Cervical spondylosis without myelopathy [M47.812] Bilateral occipital neuralgia [M54.81] Age-related osteoporosis without current pathological fracture [M81.0] Order(s):INFLUENZA VACCINE QUADRIVALENT AGE 3 YRS PLUS + IM [[id number]] Order #: [id number] fluticasone-salmeterol (ADVAIR DISKUS) 250-50 mcg/dose dsdvInhale 1 Puff as instructed twice daily. RINSE AND GARGLE MOUTH WITH WATER AFTER EACH USE.Disp: 3 InhalerRfl: 1 Prescriptions as of 08/17/2018 Sig: CHOLECALCIFEROL (VITAMIN D3) * Take 1 capsule by mouth once * METHOCARBAMOL 500 MG TABLET Take 1 tablet by mouth twice * NORTRIPTYLINE 10 MG CAPSULE Take 1 tab nightly for 1 week* ALENDRONATE 70 MG TABLET Take 1 tablet by mouth once e* TYLENOL ARTHRITIS PAIN ORAL Take 1 tablet by mouth three * * MULTIVITAMIN TABLET Take one(1) tablet daily. FLUTICASONE 250 MCG-SALMETERO* Inhale 1 Puff as instructed t* Problem List As Of Date 08/17/2018 Noted Resolved Herniated cervical disc [M50.20] INVALID FOR* More... Unspecified asthma [J45.909] INVALID FOR* Arthritis [M19.90] INVALID FOR* Osteopenia [M85.80] INVALID FOR*10/30/2017 Postmenopausal atrophic vaginitis [N95.2] INVALID FOR* Age-related osteoporosis without current pathol*INVALID FOR* More... Acute midline thoracic back pain [M54.6] INVALID FOR* Cervical spondylosis without myelopathy [M47.81*INVALID FOR* More... Bilateral occipital neuralgia [M54.81] INVALID FOR* Prescriptions ordered this encounter Disp Refills Start End FLUTICASONE 250 MCG-SALMETEROL 50 MC* 3 In* 1 08/17/2018 Route: INHALATION Sig: Inhale 1 Puff as instructed twice daily. RINSE AND GARGLE MOUTH WITH WATER AFTER EACH USE. Medications Discontinued During This Encounter meloxicam (MOBIC) 15 mg tablet 12/22/2017 08/17/2018 Class: Historical Med Route: ORAL Sig: Take 15 mg by mouth as needed. Disc: Reason for discontinue is not on file. fluticasone/salmeterol(ADVAIR DISKUS* 0 01/23/2009 08/17/2018 Class: Med Update Route: INHALATION Sig: Take one(1) inhalation twice daily; rinse and gargle mouth with water after each use. Disc: Reason for discontinue is not on file. Disposition: Return in about 6 months (around 02/15/2019). Follow-up and Disposition History Recorded Encounter Status:Closed by David SAEZ PA-C on 08/17/18 PROGRESS Observed: 08/16/2018 Status: COMPLETED Source: [place] 8:08 AM [facility] [place] REPOSITORY HNO ID: [id number] Author: Lori Andrea Service: (none) Author Type: Physician Type: Progress Notes Filed: 08/18/2018 6:12 PM Note Text: VASCULAR SURGERY INITIAL CONSULT SERVICE DATE: 08/16/2018 SERVICE TIME: 8:08 AM PRIMARY CARE PHYSICIAN: Rishi Levine MD CHIEF COMPLAINT/HISTORY OF PRESENT ILLNESS: Chief Complaint: Symptomatic Varicose Veins History of Present Illness: Patient is a 58 year old White female presenting for consultation, evaluation and possible treatment of varicose veins and spider telangectasias. Patient reports bilateral aching and localized edema (right leg worse). Predisposing factors include family history of varicose veins is positive and include(s) mother without surgery father without surgery and history of sclerotherapy. No specific history of injury or prior problems. Relieving factors include elevation of legs, compression, and reduced activity with mild improvement in symptoms. Patient denies DVT, phlebitis and treatment with blood thinners. 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 Pain Assessment: PAIN EVALUATION No data found. Obstetric History T0 L0 SAB0 TAB0 Ectopic0 Multiple0 Live Births0 Duration of Symptoms: Greater Than 1 Year PREVIOUS TESTS: None CARDIOVASCULAR RISK FACTORS: Family history PAST MEDICAL/SURGICAL/FAMILY/SOCIAL HISTORY PAST MEDICAL HISTORY Diagnosis Date - Cervical disc herniation c5-c6, C6-C7 - Occipital neuralgia - Osteoporosis - PMH - PAST MEDICAL HISTORY OF ARTHRITIS - Unspecified asthma(493.90) PAST SURGICAL HISTORY Procedure Laterality Date - DANDC, DIAG AND/OR THERAPEUTIC N/A - PAST SURGICAL HISTORY OF wisdom teeth - PAST SURGICAL HISTORY OF 06/09/14 [facility] Arthroplasty left hand FAMILY HISTORY Problem Relation Age of Onset - Hypertension Mother - Dementia Mother - Cancer Father PROSTATE - other (aortic valve) Father 2018 - Thyroid Cancer Sister - Thyroid Cancer Sister SOCIAL HISTORYSocial History Marital status: Spouse name: Manjeet Years of education: 12+ Number of children: 0 Occupational History Occupation Employer Comment [employer] Social History Main Topics Smoking status: Never Smoker Smokeless tobacco: Never Used Alcohol use: Yes Comment: RARE Drug use: No Sexual activity: Not Currently MEDICATIONS/ALLERGIES Current Outpatient Prescriptions: Cholecalciferol, Vitamin D3, (VITAMIN D) 1,000 unit cap Take 1 capsule by mouth once daily. Disp: Rfl: methocarbamol (ROBAXIN) 500 mg tablet Take 1 tablet by mouth twice daily as needed. Disp: 20 tablet Rfl: 0 nortriptyline (PAMELOR) 10 mg capsule Take 1 tab nightly for 1 week, then increase to 2 tabs for 1 week, and then 3 tabs. Stop at effective dose. Disp: 90 capsule Rfl: 11 alendronate (FOSAMAX) 70 mg tablet Take 1 tablet by mouth once each week. Take with a full glass of water, on an empty stomach; do NOT lie down for 30minutes. Disp: 12 tablet Rfl: 3 meloxicam (MOBIC) 15 mg tablet Take 15 mg by mouth as needed. Disp: Rfl: ACETAMINOPHEN (TYLENOL ARTHRITIS PAIN ORAL) Take 1 tablet by mouth three times daily. Disp: Rfl: fluticasone/salmeterol(ADVAIR DISKUS 250 MCG-50 MCG/DOSE FOR INHALATION) Take one(1) inhalation twice daily; rinse and gargle mouth with water after each use. Disp: Rfl: 0 MULTIVITAMIN TAB Take one(1) tablet daily. Disp: Rfl: 0 No current facility-administered medications for this visit. ALLERGIES Allergen Reactions - [place] Pollen [Other] asthma - Gabapentin Other: See Comments Dizziness - House Dust Shortness of Breath asthma - Shampoos [Parachlor* Rash REVIEW OF SYSTEMS Constitutional: No weight loss, malaise or fevers. HEENT: No changes in hearing or vision, no nose bleeds or other nasal problems, Head Positive for headache Respiratory: Positive for occasional SOB (d/t allergies) Cardiovascular: Negative for chest pain, leg swelling or palpitations Gatrointestinal: Negative for abdominal discomfort, blood in stools or black stools or change in bowel habits Genitourinary: No history of dysuria, frequency, or incontinence and No difficulty urination, nocturia >1 times per night or hematuria Musculoskeletal: Positive for joint pain Endocrine: Negative for cold or heat intolerance, polyuria, polydipsia and goiter Hematology/Lymphatic: Positive for bruises easily Neurologic: No history or headaches, syncope, paralysis, seizures or tremors Integumentary: Negative for lesions, rash, and itching. PHYSICAL EXAM VITALS: BP 102/69 Pulse 83 LMP 02/18/2010 General: Alert, oriented, cooperative, healthy appearance Integumentary: Normal color, no rash, no lesions. HEENT: EOM, teeth in good repair. Pupils equal, round and reactive. Cardiovascular: Pulse regular. Lungs: No chest deformities or chest wall tenderness. Abdomen: Not examined Extremities: Varicose veins Neurological: AAOx3. Normal cognition and motor skills. Vascular: Dorsalis Pedal Right: Normal - Left: Normal ASSESSMENT Symptomatic varicose veins Diagnostic tests reviewed for today's visit: Most recent labs Most recent imaging PLAN/RECOMMENDATIONS Discussed venous pathology with patient Recommend compression stockings, elevation and exercise Will get venous reflux testing and follow up to discuss results SIGNATURE: Lori Andrea DO PATIENT NAME: Hira Hernandez Barclay DATE: August 16, 2018 TIME: 8:08 AM CNOV Observed: 08/16/2018 Status: COMPLETED Source: [place] 8:00 AM [facility] Office Visit (VASSWS) DENYHIRA David ([id number]) 1960 F Date Time Provider Department 08/16/18 8:00 AM LORI ANDREA VASSWS During your visit today, we recorded the following information about you: Pulse Blood pressure 83/minute 102/69 Lori Andrea, DO 08/18/2018 6:12 PM Signed VASCULAR SURGERY INITIAL CONSULT SERVICE DATE: 08/16/2018 SERVICE TIME: 8:08 AM PRIMARY CARE PHYSICIAN: Rishi Levine MD CHIEF COMPLAINT/HISTORY OF PRESENT ILLNESS: Chief Complaint: Symptomatic Varicose Veins History of Present Illness: Patient is a 58 year old White female presenting for consultation, evaluation and possible treatment of varicose veins and spider telangectasias. Patient reports bilateral aching and localized edema (right leg worse). Predisposing factors include family history of varicose veins is positive and include(s) mother without surgery father without surgery and history of sclerotherapy. No specific history of injury or prior problems. Relieving factors include elevation of legs, compression, and reduced activity with mild improvement in symptoms. Patient denies DVT, phlebitis and treatment with blood thinners. 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 Pain Assessment: PAIN EVALUATION No data found. Obstetric History T0 L0 SAB0 TAB0 Ectopic0 Multiple0 Live Births0 Duration of Symptoms: Greater Than 1 Year PREVIOUS TESTS: None CARDIOVASCULAR RISK FACTORS: Family history PAST MEDICAL/SURGICAL/FAMILY/SOCIAL HISTORY PAST MEDICAL HISTORY Diagnosis Date - Cervical disc herniation c5-c6, C6-C7 - Occipital neuralgia - Osteoporosis - PMH - PAST MEDICAL HISTORY OF ARTHRITIS - Unspecified asthma(493.90) PAST SURGICAL HISTORY Procedure Laterality Date - DANDC, DIAG AND/OR THERAPEUTIC N/A - PAST SURGICAL HISTORY OF wisdom teeth - PAST SURGICAL HISTORY OF 06/09/14 [facility] Arthroplasty left hand FAMILY HISTORY Problem Relation Age of Onset - Hypertension Mother - Dementia Mother - Cancer Father PROSTATE - other (aortic valve) Father 2018 - Thyroid Cancer Sister - Thyroid Cancer Sister SOCIAL HISTORYSocial History Marital status: Spouse name: Manjeet Years of education: 12+ Number of children: 0 Occupational History Occupation Employer Comment [employer] Social History Main Topics Smoking status: Never Smoker Smokeless tobacco: Never Used Alcohol use: Yes Comment: RARE Drug use: No Sexual activity: Not Currently MEDICATIONS/ALLERGIES Current Outpatient Prescriptions: Cholecalciferol, Vitamin D3, (VITAMIN D) 1,000 unit cap Take 1 capsule by mouth once daily. Disp: Rfl: methocarbamol (ROBAXIN) 500 mg tablet Take 1 tablet by mouth twice daily as needed. Disp: 20 tablet Rfl: 0 nortriptyline (PAMELOR) 10 mg capsule Take 1 tab nightly for 1 week, then increase to 2 tabs for 1 week, and then 3 tabs. Stop at effective dose. Disp: 90 capsule Rfl: 11 alendronate (FOSAMAX) 70 mg tablet Take 1 tablet by mouth once each week. Take with a full glass of water, on an empty stomach; do NOT lie down for 30minutes. Disp: 12 tablet Rfl: 3 meloxicam (MOBIC) 15 mg tablet Take 15 mg by mouth as needed. Disp: Rfl: ACETAMINOPHEN (TYLENOL ARTHRITIS PAIN ORAL) Take 1 tablet by mouth three times daily. Disp: Rfl: fluticasone/salmeterol(ADVAIR DISKUS 250 MCG-50 MCG/DOSE FOR INHALATION) Take one(1) inhalation twice daily; rinse and gargle mouth with water after each use. Disp: Rfl: 0 MULTIVITAMIN TAB Take one(1) tablet daily. Disp: Rfl: 0 No current facility-administered medications for this visit. ALLERGIES Allergen Reactions - [place] Pollen [Other] asthma - Gabapentin Other: See Comments Dizziness - House Dust Shortness of Breath asthma - Shampoos [Parachlor* Rash REVIEW OF SYSTEMS Constitutional: No weight loss, malaise or fevers. HEENT: No changes in hearing or vision, no nose bleeds or other nasal problems, Head Positive for headache Respiratory: Positive for occasional SOB (d/t allergies) Cardiovascular: Negative for chest pain, leg swelling or palpitations Gatrointestinal: Negative for abdominal discomfort, blood in stools or black stools or change in bowel habits Genitourinary: No history of dysuria, frequency, or incontinence and No difficulty urination, nocturia >1 times per night or hematuria Musculoskeletal: Positive for joint pain Endocrine: Negative for cold or heat intolerance, polyuria, polydipsia and goiter Hematology/Lymphatic: Positive for bruises easily Neurologic: No history or headaches, syncope, paralysis, seizures or tremors Integumentary: Negative for lesions, rash, and itching. PHYSICAL EXAM VITALS: BP 102/69 Pulse 83 LMP 02/18/2010 General: Alert, oriented, cooperative, healthy appearance Integumentary: Normal color, no rash, no lesions. HEENT: EOM, teeth in good repair. Pupils equal, round and reactive. Cardiovascular: Pulse regular. Lungs: No chest deformities or chest wall tenderness. Abdomen: Not examined Extremities: Varicose veins Neurological: AAOx3. Normal cognition and motor skills. Vascular: Dorsalis Pedal Right: Normal - Left: Normal ASSESSMENT Symptomatic varicose veins Diagnostic tests reviewed for today's visit: Most recent labs Most recent imaging PLAN/RECOMMENDATIONS Discussed venous pathology with patient Recommend compression stockings, elevation and exercise Will get venous reflux testing and follow up to discuss results SIGNATURE: Lori Andrea DO PATIENT NAME: Hira Barclay DATE: August 16, 2018 TIME: 8:08 AM Referring Provider: SELF [[id number]] Allergies As of Date: 08/16/2018 Noted Allergy Reaction corn pollen [Other] 01/23/2009 Comments: asthma GABAPENTIN 03/17/2018 14 - Other: See Comments Comments: Dizziness HOUSE DUST 01/23/2009 12 - Shortness of Breath Comments: asthma SHAMPOOS (PARACHLOROMETAXYLENOL) 01/05/2006 2 - Rash Date Reviewed: 08/16/2018 Reviewed by: Martin Otrega RN - Fully Assessed Reason for Visit: New Patient Evaluation [154] Primary Visit Diagnosis:Symptomatic varicose veins of both lower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 disease LAB LDL <100 mg/dL LDL-Cholesterol 82 Result Comment: <100 mg/dL, Optimal 100-129 mg/dL, Near optimal/above optimal 130-159 mg/dL, Borderline high 160-189 mg/dL, High >189 mg/dL, Very high Secondary prevention optimal LDL Cholesterol levels are recommended to be < 70 mg/dL LAB NONHDL <130 mg/dL Non HDL Cholesterol 91 Result Comment: <130 mg/dL, Optimal 130-159 mg/dL, Near optimal/above optimal 160-189 mg/dL, Borderline high 190-219 mg/dL, High >219 mg/dL, Very high Secondary prevention optimal non HDL Cholesterol levels are recommended to be < 100 mg/dL LAB FT hrs Fasting Time 12 LAB VLDL <30 mg/dL VLDL Cholesterol 9 LAB TCHDL <5.10 TC:HDL Ratio 2.07 LAB LDLHDL <2.54 LDL:HDL Ratio 0.96 Result Comment: Reference: 1. National Cholesterol Education Program ATP III Guideline At-A-Glance Quick Desk Reference: National Heart, Lung, and Blood [place]. National Institutes of Health. 2001: NIH Publication No. 01-3305. 2. An International Atherosclerosis Society position paper: global recommendations for the management of dyslipidemia: executive summary, Atherosclerosis. 2014: 232(2):410-413. Performed By: #### CMP, LIPB #### [facility] [address] [address] PROGRESS Observed: 07/20/2018 Status: COMPLETED Source: [place] 10:40 AM [facility] REPOSITORY HNO ID: [id number] Author: Monet Almendarez) [place] Service: (none) Author Type: Nurse Practitioner Type: Progress Notes Filed: 07/20/2018 11:21 AM Note Text: Hira Barclay is a 58 year old who presents for her annual gynecologic exam without complaints. Postmenopausal: Yes since age 49/49 HRT use: No. Last Pap: 2017 normal HPV: 2017 negative History of abnormal pap: Yes Last mammogram: 2018 normal History of abnormal mammogram: No Sexually active: Yes Pain with intercourse: No Postcoital bleeding: No Hot flashes: No Night sweats: No Vaginal dryness: Yes Obstetric History T0 L0 SAB0 TAB0 Ectopic0 Multiple0 Live Births0 PAST MEDICAL HISTORY Diagnosis Date - Cervical disc herniation c5-c6, C6-C7 - Occipital neuralgia - Osteoporosis - PMH - PAST MEDICAL HISTORY OF ARTHRITIS - Unspecified asthma(493.90) PAST SURGICAL HISTORY Procedure Laterality Date - DANDC, DIAG AND/OR THERAPEUTIC N/A - PAST SURGICAL HISTORY OF wisdom teeth - PAST SURGICAL HISTORY OF 06/09/14 [facility] Arthroplasty left hand FAMILY HISTORY Problem Relation Age of Onset - Hypertension Mother - Dementia Mother - Cancer Father PROSTATE - other (aortic valve) Father 2018 - Thyroid Cancer Sister - Thyroid Cancer Sister SOCIAL HISTORY Social History Substance Use Topics - Smoking status: Never Smoker - Smokeless tobacco: Never Used - Alcohol use Yes Comment: RARE REVIEW OF SYSTEMS Abdomen: No abdominal pain, nausea, vomiting, diarrhea, or constipation. No bloating, early satiety, indigestion, or increased flatulence. Bladder: No dysuria, gross hematuria, urinary frequency, urinary urgency, or incontinence Breast: No breast lumps, nipple d/c, overlying skin changes, redness or skin retraction Allergies and current medication updated:Yes EXAM: Ht 5' 1.75 (1.57m) Wt 104 lb (47.2kg) LMP 02/18/2010 BMI 19.19 kg/(m2). GENERAL: pleasant, female in no apparent distress HEENT: Normocephalic, atraumatic, mucus membranes moist and no lesions NECK: Supple, full range of motion, no adenopathy and thyroid normal DERMATOLOGY: Normal, without lesions, non-icteric and non-hirsute BREAST: soft, non-tender, symmetric, no dominant mass, normal nipple-areolar complex, no lymphadenopathy and no nipple discharge CHEST: Normal inspiratory effort ABDOMEN: soft, non-tender and no masses PELVIC: external genitalia normal, normal Bartholin's glands, urethra, Glouster's glands, no vulvar lesions, no cervical lesions, good vaginal support, physiologic discharge present, normal appearing perineal body and perianal region BIMANUAL: uterus normal size, shape and consistency, no adnexal masses, non-tender and no cervical motion tenderness RECTOVAGINAL: deferred. NEURO: alert and oriented x3,exam grossly non-focal EXTREMITIES: normal ASSESSMENT/PLAN: 1) Health maintenance: Pap/HPV up to date. Mammogram up to date Nutrition, exercise and routine health maintenance exams reviewed. Calcium/Vitamin D supplementation information provided. BMD: up to date 2) Follow up one year or sooner as needed Monet Shukla APRN.KENDAL CNOV Observed: 07/20/2018 Status: COMPLETED Source: [place] 10:15 AM [facility] REPOSITORY Office Visit (WOOB) HIRA BARCLAY ([id number]) 1960 F Date Time Provider Department 07/20/18 10:15 AM MONET SHUKLA (KENDAL) [place] During your visit today, we recorded the following information about you: Blood pressure Weight Height 100/62 47.2 kg 1.568 m Monet Shukla APRN.CNP 07/20/2018 11:21 AM Signed Hira Barclay is a 58 year old who presents for her annual gynecologic exam without complaints. Postmenopausal: Yes since age [age] HRT use: No. Last Pap: 2016 normal HPV: 2016 negative History of abnormal pap: Yes Last mammogram: 2017 normal History of abnormal mammogram: No Sexually active: Yes Pain with intercourse: No Postcoital bleeding: No Hot flashes: No Night sweats: No Vaginal dryness: Yes Obstetric History T0 L0 SAB0 TAB0 Ectopic0 Multiple0 Live Births0 PAST MEDICAL HISTORY Diagnosis Date - Cervical disc herniation c5-c6, C6-C7 - Occipital neuralgia - Osteoporosis - PMH - PAST MEDICAL HISTORY OF ARTHRITIS - Unspecified asthma(493.90) PAST SURGICAL HISTORY Procedure Laterality Date - DANDC, DIAG AND/OR THERAPEUTIC N/A - PAST SURGICAL HISTORY OF wisdom teeth - PAST SURGICAL HISTORY OF 06/09/14 [facility] Arthroplasty left hand FAMILY HISTORY Problem Relation Age of Onset - Hypertension Mother - Dementia Mother - Cancer Father PROSTATE - other (aortic valve) Father 2018 - Thyroid Cancer Sister - Thyroid Cancer Sister SOCIAL HISTORY Social History Substance Use Topics - Smoking status: Never Smoker - Smokeless tobacco: Never Used - Alcohol use Yes Comment: RARE REVIEW OF SYSTEMS Abdomen: No abdominal pain, nausea, vomiting, diarrhea, or constipation. No bloating, early satiety, indigestion, or increased flatulence. Bladder: No dysuria, gross hematuria, urinary frequency, urinary urgency, or incontinence Breast: No breast lumps, nipple d/c, overlying skin changes, redness or skin retraction Allergies and current medication updated:Yes EXAM: Ht 5' 1.75 (1.57m) Wt 104 lb (47.2kg) LMP 02/18/2010 BMI 19.19 kg/(m2). GENERAL: pleasant, female in no apparent distress HEENT: Normocephalic, atraumatic, mucus membranes moist and no lesions NECK: Supple, full range of motion, no adenopathy and thyroid normal DERMATOLOGY: Normal, without lesions, non-icteric and non-hirsute BREAST: soft, non-tender, symmetric, no dominant mass, normal nipple-areolar complex, no lymphadenopathy and no nipple discharge CHEST: Normal inspiratory effort ABDOMEN: soft, non-tender and no masses PELVIC: external genitalia normal, normal Bartholin's glands, urethra, Glouster's glands, no vulvar lesions, no cervical lesions, good vaginal support, physiologic discharge present, normal appearing perineal body and perianal region BIMANUAL: uterus normal size, shape and consistency, no adnexal masses, non-tender and no cervical motion tenderness RECTOVAGINAL: deferred. NEURO: alert and oriented x3,exam grossly non-focal EXTREMITIES: normal ASSESSMENT/PLAN: 1) Health maintenance: Pap/HPV up to date. Mammogram up to date Nutrition, exercise and routine health maintenance exams reviewed. Calcium/Vitamin D supplementation information provided. BMD: up to date 2) Follow up one year or sooner as needed Monet Shukla, [employer] ENGINEER.[employer] SAL[employer] SERVICE MANAGER Referring Provider: SELF [[id number]] Allergies As of Date: 07/20/2018 Noted Allergy Reaction corn pollen [Other] 01/23/2009 Comments: asthma GABAPENTIN 03/17/2018 14 - Other: See Comments Comments: Dizziness HOUSE DUST 01/23/2009 12 - Shortness of Breath Comments: asthma SHAMPOOS (PARACHLOROMETAXYLENOL) 01/05/2006 2 - Rash Date Reviewed: 07/20/2018 Reviewed by: Monet Almendarez) [place] - Fully Assessed Reason for Visit: Yearly Exam [187] Primary Visit Diagnosis:Encounter for gynecological examination (general) (routine) without abnormal findings [Z01.419] Other Visit Diagnosis:Encounter for screening mammogram for malignant neoplasm of breast [Z12.31] Order(s):[facility] SCREENING [[id number]] Order #: [id number] FUTURE Prescriptions as of 07/20/2018 Sig: METHOCARBAMOL 500 MG TABLET Take 1 tablet by mouth twice * NORTRIPTYLINE 10 MG CAPSULE Take 1 tab nightly for 1 week* ALENDRONATE 70 MG TABLET Take 1 tablet by mouth once e* MELOXICAM 15 MG TABLET Take 15 mg by mouth as needed* CALCIUM CARBONATE-VITAMIN D3 * Take 1 tablet by mouth twice * TYLENOL ARTHRITIS PAIN ORAL Take 1 tablet by mouth three * IBUPROFEN IB ORAL Take by mouth as needed. * ADVAIR DISKUS 250 MCG-50 MCG/* Take one(1) inhalation twice * * MULTIVITAMIN TABLET Take one(1) tablet daily. Problem List As Of Date 07/20/2018 Noted Resolved Herniated cervical disc [M50.20] INVALID FOR* More... Unspecified asthma [J45.909] INVALID FOR* Arthritis [M19.90] INVALID FOR* Osteopenia [M85.80] INVALID FOR*10/30/2017 Postmenopausal atrophic vaginitis [N95.2] INVALID FOR* Age-related osteoporosis without current pathol*INVALID FOR* More... Acute midline thoracic back pain [M54.6] INVALID FOR* Cervical spondylosis without myelopathy [M47.81*INVALID FOR* More... Bilateral occipital neuralgia [M54.81] INVALID FOR* Disposition: Return in 1 year (on 07/20/2019) for Annual Exam. Follow-up and Disposition History Recorded Encounter Status:Closed by MONET SHUKLA on 07/20/18 PROGRESS Observed: 07/14/2018 Status: COMPLETED Source: [place] 9:39 AM [facility] [place] REPOSITORY O ID: [id number] Author: Whitney Anglin Service: (none) Author Type: Physician Banquet Lead Type: Progress Notes Filed: 07/14/2018 12:16 PM Note Text: [facility] - Follow up Visit LV: 03/17/2018 Dr. Ayde Barragan Accompanied by: Self Primary Problem List: ACTIVE PROBLEM LIST Herniated Cervical Disc Unspecified Asthma(493.90) Arthritis Postmenopausal Atrophic Vaginitis Age-Related Osteoporosis Without Current Pathological Fracture Acute Midline Thoracic Back Pain Cervical Spondylosis Without Myelopathy Chief Complaint: Bilateral occipital neuralgia Interval Headache Hx: Ms. Barclay is here today for f/u of her bilateral occipital neuralgia. She was diagnosed by Dr. Barragan, 03/17/2018. Patient followed up with her Spine physician; Dr. Casarez, on 03/24/2018 for a facet block; this helped for 1-2 days, then seemed to make her neck and head feel worse overall. Then patient started taking the Nortriptyline 10 mg capsule, one at bedtime, in March 2018. Initially her pain improved, but she felt too drowsy during the daytime and had difficulty falling asleep. She stopped taking it for 2-3 weeks but the headaches were too severe without the nortriptyline. While the headaches were severe patient increased her caffeine intake and was taking robaxin and Ibuprofen daily for 2-3 weeks. She just recently stopped overusing the caffeine and rescue medications. The nortriptyline has reduced her pain: 50-60% better. Slept better the first 2 nights. Has stopped using extra caffeine for a few days. Stopped coffee x 3 days, had one tea. Ms. Barclay has tried PHYSICAL THERAPY in the past with little to no success, the PHYSICAL THERAPY increased her headache pain. Patient contacted Dr. Barragan's office and it was recommended that she try the nortriptyline again. She restarted the medication one week ago, still taking 10 mg at bedtime. Head/neck pain have reduced to a more tolerable level. If she moves her head or neck quickly, she has severe pain. Patient states her initial injury occurred in 2010 following a chiropractic adjustment. She had tried gabapentin once before, but was placed on to 300 mg immediately and she felt loopy from the medication. She would be willing to retry at the 100 mg level. Patient is scheduled to see her Spine Medicine provider in August 2018. Diary to review: yes Since the last visit, the patient states that her headaches have not changed. The headaches are occipital and both sides, throbbing and pressure, and are associated with neck pain. They last 1-2 days, with treatment. Headaches usually occur at anytime of day/night. Preventative: nortriptyline Abortive: robaxin The headache is worse with Movement of neck, resting head on pillow. Patient notes that the headache is improved by Medication, Quiet and Cold Total headache attacks per month: daily Duration of attacks: 1-12 hours Total headache days per month: daily Severity of headaches? severe Medications effective? sometimes # of doses of abortive medications per month: was using medications dailiy, needed education about MOHs Time missed from work or school: none Issues and questions to be addressed: Medications methocarbamol (ROBAXIN) 500 mg tablet Take 1 tablet by mouth twice daily as needed. nortriptyline (PAMELOR) 10 mg capsule Take 1 tab nightly for 1 week, then increase to 2 tabs for 1 week, and then 3 tabs. Stop at effective dose. alendronate (FOSAMAX) 70 mg tablet Take 1 tablet by mouth once each week. Take with a full glass of water, on an empty stomach; do NOT lie down for 30minutes. calcium-cholecalciferol, D3, (OSCAL+D 250) 250-125 mg-unit per tablet Take 1 tablet by mouth twice daily. ACETAMINOPHEN (TYLENOL ARTHRITIS PAIN ORAL) Take 1 tablet by mouth three times daily. IBUPROFEN IB ORAL Take by mouth as needed. fluticasone/salmeterol(ADVAIR DISKUS 250 MCG-50 MCG/DOSE FOR INHALATION) Take one(1) inhalation twice daily; rinse and gargle mouth with water after each use. MULTIVITAMIN TAB Take one(1) tablet daily. meloxicam (MOBIC) 15 mg tablet Take 15 mg by mouth as needed. ALLERGIES Allergen Reactions - [place] Pollen [Other] asthma - Gabapentin Other: See Comments Dizziness - House Dust Shortness of Breath asthma - Shampoos [Parachlor* Rash I have reviewed the Health Status Assessment responses and discussed these with the patient: yes Whitney Anglin PA-C HIT 6: 64 PHQ 9: 7 Studies to Review: No New Health Issues: yes dry mouth and dry eyes with nortriptyline New Social History: Yes, changes at work New Family History: Yes, father 11/2017, mother has dementia REVIEW OF SYSTEMS: Review of system changed from previous visit:, Sleep: Frequent awakenings, Mood: normal, Energy: variable to low, Appetite: normal , Weight stable, Stress: High, Sexual Dysfunction: Not Applicable, Exercising: No, PHYSICAL EXAMINATION: VS: BP 110/70 (BP Site: Left Arm, BP Position: Sitting, BP Cuff Size: Small Adult) Pulse 75 Wt 48.8 kg (107 lb 9.6 oz) LMP 02/18/2010 BMI 19.68 kg/m? General: well appearing, in no acute distress, well-hydrated, well nourished, alert, thin, rubbing affected body part, solicited verbal complaints and unsolicited verbal complaints, HEENT: Normocephalic/atraumatic., No lymphadenopathy., No carotid bruit Skin: Color, texture, turgor normal. No rashes or lesions, Lungs: normal breath sounds bilaterally, CV: RRR, normal S1, S2 auscultated, no murmurs and no JVD, Musculoskeletal: No gross joint deformities. , Tenderness to palpation of temporalis muscles: No, Tenderness to palpation of cervical spine and upper trapezius: Yes bilaterally., Suboccipital tenderness: Yes bilaterally. , Muscle spasms: Yes bilaterally . , Trigger Points: none , Cervical ROM: Normal. , Resting neck position: Normal. Neurological: Normal mental status. Cranial nerves II-XII intact. Normal tone and strength. Normal coordination. DTRs are intact and symmetric bilaterally. Normal gait. Impression: Ms. Barclay is a delightful 58 y/o female with h/o bilateral occipital neuralgia. She is having some mild success with the nortriptyline 10 mg at bedtime. Her pain has improved by 50- 60% and her sleep has improved. Cranial Neuralgias AND Central Causes of Pain: 13.8 Occipital neuralgia Plan: 1. Increase the nortriptyline to 20 mg nightly, if tolerated and help stay on 20 mg night. If tolerated by not effective, consider 30 mg nightly. 2. If the above fails; consider; gabapentin 100 mg up to tid or consider topamax. 3. Consider bilateral greater occipital nerve blocks 4. Consider seeing Pain management for VERONICA blocks/radio frequency ablation All options for treatment discussed. Follow-up: 3 months Total time in minutes spent with patient: 35 with more than 50% of the time spent in patient education/counselling/coordinating care with the patient and /or family. ROSA Alves Observed: 07/14/2018 Status: COMPLETED Source: [place] 9:10 AM [facility] REPOSITORY Office Visit (NEHAAV) DENYHIRA Hernandez ([id number]) 1960 F Date Time Provider Department 07/14/18 9:10 AM WHITNEY ANGLIN) [place] During your visit today, we recorded the following information about you: Pulse Blood pressure Weight 75/minute 110/70 48.8 kg Whitney Anglin PA-C 07/14/2018 12:16 PM Signed [facility] - Follow up Visit LV: 03/17/2018 Dr. Ayde Barragan Accompanied by: Self Primary Problem List: ACTIVE PROBLEM LIST Herniated Cervical Disc Unspecified Asthma(493.90) Arthritis Postmenopausal Atrophic Vaginitis Age-Related Osteoporosis Without Current Pathological Fracture Acute Midline Thoracic Back Pain Cervical Spondylosis Without Myelopathy Chief Complaint: Bilateral occipital neuralgia Interval Headache Hx: Ms. Barclay is here today for f/u of her bilateral occipital neuralgia. She was diagnosed by Dr. Barragan, 03/17/2018. Patient followed up with her Spine physician; Dr. Casarez, on 03/24/2018 for a facet block; this helped for 1-2 days, then seemed to make her neck and head feel worse overall. Then patient started taking the Nortriptyline 10 mg capsule, one at bedtime, in March 2018. Initially her pain improved, but she felt too drowsy during the daytime and had difficulty falling asleep. She stopped taking it for 2-3 weeks but the headaches were too severe without the nortriptyline. While the headaches were severe patient increased her caffeine intake and was taking robaxin and Ibuprofen daily for 2-3 weeks. She just recently stopped overusing the caffeine and rescue medications. The nortriptyline has reduced her pain: 50-60% better. Slept better the first 2 nights. Has stopped using extra caffeine for a few days. Stopped coffee x 3 days, had one tea. Ms. Barclay has tried PHYSICAL THERAPY in the past with little to no success, the PHYSICAL THERAPY increased her headache pain. Patient contacted Dr. Barragan's office and it was recommended that she try the nortriptyline again. She restarted the medication one week ago, still taking 10 mg at bedtime. Head/neck pain have reduced to a more tolerable level. If she moves her head or neck quickly, she has severe pain. Patient states her initial injury occurred in 2010 following a chiropractic adjustment. She had tried gabapentin once before, but was placed on to 300 mg immediately and she felt loopy from the medication. She would be willing to retry at the 100 mg level. Patient is scheduled to see her Spine Medicine provider in August 2018. Diary to review: yes Since the last visit, the patient states that her headaches have not changed. The headaches are occipital and both sides, throbbing and pressure, and are associated with neck pain. They last 1-2 days, with treatment. Headaches usually occur at anytime of day/night. Preventative: nortriptyline Abortive: robaxin The headache is worse with Movement of neck, resting head on pillow. Patient notes that the headache is improved by Medication, Quiet and Cold Total headache attacks per month: daily Duration of attacks: 1-12 hours Total headache days per month: daily Severity of headaches? severe Medications effective? sometimes # of doses of abortive medications per month: was using medications dailiy, needed education about MOHs Time missed from work or school: none Issues and questions to be addressed: Medications methocarbamol (ROBAXIN) 500 mg tablet Take 1 tablet by mouth twice daily as needed. nortriptyline (PAMELOR) 10 mg capsule Take 1 tab nightly for 1 week, then increase to 2 tabs for 1 week, and then 3 tabs. Stop at effective dose. alendronate (FOSAMAX) 70 mg tablet Take 1 tablet by mouth once each week. Take with a full glass of water, on an empty stomach; do NOT lie down for 30minutes. calcium-cholecalciferol, D3, (OSCAL+D 250) 250-125 mg-unit per tablet Take 1 tablet by mouth twice daily. ACETAMINOPHEN (TYLENOL ARTHRITIS PAIN ORAL) Take 1 tablet by mouth three times daily. IBUPROFEN IB ORAL Take by mouth as needed. fluticasone/salmeterol(ADVAIR DISKUS 250 MCG-50 MCG/DOSE FOR INHALATION) Take one(1) inhalation twice daily; rinse and gargle mouth with water after each use. MULTIVITAMIN TAB Take one(1) tablet daily. meloxicam (MOBIC) 15 mg tablet Take 15 mg by mouth as needed. ALLERGIES Allergen Reactions - [place] Pollen [Other] asthma - Gabapentin Other: See Comments Dizziness - House Dust Shortness of Breath asthma - Shampoos [Parachlor* Rash I have reviewed the Health Status Assessment responses and discussed these with the patient: yes Whitney Linnette, PA-C HIT 6: 64 PHQ 9: 7 Studies to Review: No New Health Issues: yes dry mouth and dry eyes with nortriptyline New Social History: Yes, changes at work New Family History: Yes, father 11/2017, mother has dementia REVIEW OF SYSTEMS: Review of system changed from previous visit:, Sleep: Frequent awakenings, Mood: normal, Energy: variable to low, Appetite: normal , Weight stable, Stress: High, Sexual Dysfunction: Not Applicable, Exercising: No, PHYSICAL EXAMINATION: VS: BP 110/70 (BP Site: Left Arm, BP Position: Sitting, BP Cuff Size: Small Adult) Pulse 75 Wt 48.8 kg (107 lb 9.6 oz) LMP 02/18/2010 BMI 19.68 kg/m? General: well appearing, in no acute distress, well-hydrated, well nourished, alert, thin, rubbing affected body part, solicited verbal complaints and unsolicited verbal complaints, HEENT: Normocephalic/atraumatic., No lymphadenopathy., No carotid bruit Skin: Color, texture, turgor normal. No rashes or lesions, Lungs: normal breath sounds bilaterally, CV: RRR, normal S1, S2 auscultated, no murmurs and no JVD, Musculoskeletal: No gross joint deformities. , Tenderness to palpation of temporalis muscles: No, Tenderness to palpation of cervical spine and upper trapezius: Yes bilaterally., Suboccipital tenderness: Yes bilaterally. , Muscle spasms: Yes bilaterally . , Trigger Points: none , Cervical ROM: Normal. , Resting neck position: Normal. Neurological: Normal mental status. Cranial nerves II-XII intact. Normal tone and strength. Normal coordination. DTRs are intact and symmetric bilaterally. Normal gait. Impression: Ms. Barclay is a delightful 58 y/o female with h/o bilateral occipital neuralgia. She is having some mild success with the nortriptyline 10 mg at bedtime. Her pain has improved by 50-60% and her sleep has improved. Cranial Neuralgias AND Central Causes of Pain: 13.8 Occipital neuralgia Plan: 1. Increase the nortriptyline to 20 mg nightly, if tolerated and help stay on 20 mg night. If tolerated by not effective, consider 30 mg nightly. 2. If the above fails; consider; gabapentin 100 mg up to tid or consider topamax. 3. Consider bilateral greater occipital nerve blocks 4. Consider seeing Pain management for VERONICA blocks/radio frequency ablation All options for treatment discussed. Follow-up: 3 months Total time in minutes spent with patient: 35 with more than 50% of the time spent in patient education/counselling/coordinating care with the patient and /or family. ROSA Alves PA-C 07/14/2018 10:09 AM Signed 1. Nortriptyline 10 Mg ; increase to 20 mg nightly. 2. If not improving you could return to office for Bilateral Greater occipital nerve blocks. 3. You had facet blocks with Dr. Casarez 4. Consider Radio frequency ablation with pain management or Spine. Referring Provider: SELF [[id number]] Allergies As of Date: 07/14/2018 Noted Allergy Reaction corn pollen [Other] 01/23/2009 Comments: asthma GABAPENTIN 03/17/2018 14 - Other: See Comments Comments: Dizziness HOUSE DUST 01/23/2009 12 - Shortness of Breath Comments: asthma SHAMPOOS (PARACHLOROMETAXYLENOL) 01/05/2006 2 - Rash Date Reviewed: 07/14/2018 Reviewed by: Sofie (Thomas) THOMAS Ivory - Fully Assessed Reason for Visit: Established Patient [175] Primary Visit Diagnosis:Bilateral occipital neuralgia [M54.81] Prescriptions as of 07/14/2018 Sig: METHOCARBAMOL 500 MG TABLET Take 1 tablet by mouth twice * NORTRIPTYLINE 10 MG CAPSULE Take 1 tab nightly for 1 week* ALENDRONATE 70 MG TABLET Take 1 tablet by mouth once e* CALCIUM CARBONATE-VITAMIN D3 * Take 1 tablet by mouth twice * TYLENOL ARTHRITIS PAIN ORAL Take 1 tablet by mouth three * IBUPROFEN IB ORAL Take by mouth as needed. * ADVAIR DISKUS 250 MCG-50 MCG/* Take one(1) inhalation twice * * MULTIVITAMIN TABLET Take one(1) tablet daily. MELOXICAM 15 MG TABLET Take 15 mg by mouth as needed* Medication notes this encounter ADVAIR DISKUS 250 MCG-50 MCG/DOSE POWDER FOR INHALATION >> Sofie Ivory LPN, LPN 07/14/2018 9:36 AM >> SOFIE IVORY ThuJul 14, 2018 9:36 AM takes once daily Problem List As Of Date 07/14/2018 Noted Resolved Herniated cervical disc [M50.20] INVALID FOR* More... Unspecified asthma [J45.909] INVALID FOR* Arthritis [M19.90] INVALID FOR* Osteopenia [M85.80] INVALID FOR*10/30/2017 Postmenopausal atrophic vaginitis [N95.2] INVALID FOR* Age-related osteoporosis without current pathol*INVALID FOR* More... Acute midline thoracic back pain [M54.6] INVALID FOR* Cervical spondylosis without myelopathy [M47.81*INVALID FOR* More... Bilateral occipital neuralgia [M54.81] INVALID FOR* Other instructions from your clinician: 1. Nortriptyline 10 Mg ; increase to 20 mg nightly. 2. If not improving you could return to office for Bilateral Greater occipital nerve blocks. 3. You had facet blocks with Dr. Casarez 4. Consider Radio frequency ablation with pain management or Spine. Medications Discontinued During This Encounter meloxicam (MOBIC) 15 mg tablet 30 t* 0 12/22/2017 07/14/2018 Route: ORAL Sig: Take 1 tablet by mouth once daily. Disc: Course of therapy completed Encounter Status:Closed by WHITNEY ANGLIN PA-C on 07/14/18 [facility] Observed: 04/27/2018 Status: COMPLETED Source: [place] 12:10 PM [facility] REPOSITORY [facility] ID: [id number] Author: Mammography Coordinator Service: (none) Author Type: Physician Type: Letter Filed: 04/28/2018 11:31 PM Note Text: April 27, 2018 PID: [id number] Hira Barclay [address] [place] [address] Dear Ms. Barclay, We are pleased to inform you that the results of your recent breast imaging exam on 04/27/2018 are normal. Your mammogram demonstrates that you have dense breast tissue, which could hide abnormalities. Dense breast tissue, in and of itself, is a relatively common condition. Therefore, this information is not provided to cause undue concern; rather, it is to raise your awareness and promote discussion with your health care provider regarding the presence of dense breast tissue in addition to other risk factors. Early detection of cancer is very important. We also understand recommendations regarding breast cancer screening are controversial. Please discuss with your primary care provider which strategy is best for you and whether a mammogram is right for you. Your imaging studies and report will be kept on file at [facility] as part of your permanent medical record and are available for your continuing care. Thank you for allowing us to help in meeting your health care needs. Sincerely, Dr. Gaviria Interpreting Radiologist [facility] (Normal over 40) [facility] SCREENING Observed: 04/27/2018 Status: F Source: [place] 10:26 AM [place] [facility] REPOS[facility]ORY * * *Final Report* * * DATE OF EXAM: Apr 27 2018 10:26AM [facility] 0581 - [facility] SCREENING / PROCEDURE REASON: Encounter for screening mammogram for malignant neoplasm of breast * * * * Physician Interpretation * * * * RESULT: #[id number] - [facility] SCREENING BILATERAL DIGITAL SCREENING MAMMOGRAM WITH CAD: 04/27/2018 HISTORY: Encounter For Screening Mammogram For Malignant Neoplasm Of Breast /Screening Mammogram - patient reports NO breast symptoms /Priors available for comparison. RESULT: TECHNIQUE: The study was acquired using full field digital technology and interpreted from soft copy. Current study was also evaluated with a Computer Aided Detection (CAD). Comparison is made to exams dated: 05/22/2015 mammogram and 03/17/2014 mammogram - [facility]. The tissue of both breasts is heterogeneously dense. This may lower the sensitivity of mammography. No significant masses, calcifications, or other findings are seen in either breast. There has been no significant interval change. IMPRESSION: NEGATIVE There is no mammographic evidence of malignancy.A 1 year screening mammogram is recommended. Olivia toro/aggie:04/27/2018 12:10:07 Nonfarm Animal Caretaker: Anaya [place](Ada)(David), [facility] letter sent: Normal over 40 Mammogram BI-RADS: 1 Negative Tube Puller: Aggie Transcribe Date/Time: Apr 27 2018 10:11A Dictated by: OLIVIA GAVIRIA MD This examination was interpreted and the report reviewed and electronically signed by: OLIVIA GAVIRIA MD on Apr 27 2018 12:10PM EST [id number] Observed: 03/26/2018 Status: COMPLETED Source: [place] 12:00 AM [place] [facility] Telephone (NIQ) HIRA BARCLAY ([id number]) 1960 F Date Time Provider Department 03/26/18 DARWIN CASAREZ During your visit today, we recorded the following information about you: Luisa Hernandez Psr 03/26/2018 8:51 AM Signed Hira Barclay is calling Darwin Casarez DO today. Patient Update (Patient has slight headache and some neck muscle tightness. Patient did go to work today.) Patient has been identified by name and birthdate. Duration of symptoms: N/A Person calling: self Call patient at: on cell [phone] (home) [phone] (work) [phone] (cell) Was an appointment scheduled: No Closing statement: Luisa Hernandez Psr Katie Alfonso RN, RN 03/26/2018 9:08 AM Signed Pt two day s/p Bilateral C5-C6 intra articular facet injection. LVM- requesting a call back to the office. Katie Alfonso RN [facility] 03/26/2018 12:25 PM Signed Pls call pt on cell phone Pt is currently at lunch, good time to call Katie Alfonso RN, RN 03/26/2018 12:52 PM Signed Pt two day s/p Bilateral C5-C6 intra articular facet injection. - Pt stating she is having pressure in head 10, took tylenol - Pt states felt like she was moving in slow motion felt spacey, tightness in neck, denies falling or balance issues, denies loss of bowel or bladder control - Pain is not worse in neck than prior to injection Will route to [place] for further recommendations. Darwin Casarez DO 03/26/2018 1:34 PM Signed Please contact patient and advise her that I reviewed her imaging results from her procedure. Needle positioning appears good. No concerns regarding injection. As we discussed after her injection the reason we are performing this injection is to evaluate the joints which we believe may have a role in her neck and had pain complaints these joints can at times cause this spacey feeling and can get worse after they are filled up with the steroid and anesthetic. At this point time I would recommend patient continue with conservative treatment. She can use heat or heating pad on her neck. Any redness near the site of injection she should contact our office. We advised her prior to injection that sometimes once that medication has plumped up the facet joints sometimes you can develop some worsening of her underlying symptoms until the steroid has kicked in. However get in touch with us next week if things have not shown any significant improvement. We will also forward message to Dr. Bernal spine surgery who originally referred her to us. Did her neck pain get any better on the day of injection? She should keep follow up appointment. If symptoms worsen should contact our office. Darwin Casarez, DO Katie Alfonso RN, RN 03/26/2018 1:40 PM Signed LVM for pt requesting a call back. Kaite Alfonso RN From previous conversation with pt- pt stated she did have relief with injectoin for the first day, felt great. Katie Alfonso RN, RN 03/26/2018 1:54 PM Signed MC message sent to pt as well. Katie Alfonso RN, RN 03/26/2018 3:14 PM Signed Reviewed thoughts/recommendations with pt, per Dr Casarez. Pt verbalized understanding and was instructed to call our office if any questions or problems arise. Allergies As of Date: 03/26/2018 Noted Allergy Reaction corn pollen [Other] 01/23/2009 Comments: asthma GABAPENTIN 03/17/2018 14 - Other: See Comments Comments: Dizziness HOUSE DUST 01/23/2009 12 - Shortness of Breath Comments: asthma SHAMPOOS (PARACHLOROMETAXYLENOL) 01/05/2006 2 - Rash Date Reviewed: 03/24/2018 Reviewed by: Cary Orozco) KATRIN Stanford - Fully Assessed Reason for Visit: Patient Update [1234] Cmt: Patient has slight headache and some neck muscle tightness. Patient did go to work today. Prescriptions as of 03/26/2018 Sig: NORTRIPTYLINE 10 MG CAPSULE Take 1 tab nightly for 1 week* METHOCARBAMOL 500 MG TABLET Take 1 tablet by mouth twice * ALENDRONATE 70 MG TABLET Take 1 tablet by mouth once e* MELOXICAM 15 MG TABLET Take 15 mg by mouth as needed* MELOXICAM 15 MG TABLET Take 1 tablet by mouth once d* CALCIUM CARBONATE-VITAMIN D3 * Take 1 tablet by mouth twice * TYLENOL ARTHRITIS PAIN ORAL Take 1 tablet by mouth three * IBUPROFEN IB ORAL Take by mouth as needed. * ADVAIR DISKUS 250 MCG-50 MCG/* Take one(1) inhalation twice * * MULTIVITAMIN TABLET Take one(1) tablet daily. Problem List As Of Date 03/26/2018 Noted Resolved Herniated cervical disc [M50.20] INVALID FOR* More... Unspecified asthma [J45.909] INVALID FOR* Arthritis [M19.90] INVALID FOR* Osteopenia [M85.80] INVALID FOR*10/30/2017 Postmenopausal atrophic vaginitis [N95.2] INVALID FOR* Age-related osteoporosis without current pathol*INVALID FOR* More... Acute midline thoracic back pain [M54.6] INVALID FOR* Cervical spondylosis without myelopathy [M47.81*INVALID FOR* More... Encounter Status:Closed by KATIE ALFONSO on 03/26/18 PT ED Observed: 03/24/2018 Status: COMPLETED Source: [place] 2:45 PM [facility] [place] REPOSITORY [facility] ID: [id number] Author: Cary (Katrin) KATRIN Stanford Service: (none) Author Type: Registered Nurse Type: Patient Education Filed: 03/24/2018 2:45 PM Note Text: POST OP LEARNING RESPONSE INSTRUCTION PROVIDED TO: Patient and family member METHOD OF INSTRUCTION: Individual instruction Written instruction - handouts Verbal instruction PATIENT / FAMILY RESPONSE: Verbalizes understanding of: INFECTION MANAGEMENT-Signs and symptoms of an infection and importance of contacting the physician PAIN MANAGEMENT-Effective strategies to manage pain in addition to pain medication PHYSICAL RESTRICTIONS-Physical restrictions and recommendations after discharge from the hospital POST-PROCEDURE INSTRUCTIONS-Correct actions to take to reduce post procedure complications PATIENT SAFETY PRINCIPLES WORSENING CONDITION-Signs and symptoms of a worsening condition that warrant a call to the physician WOUND CARE-Correct procedure to perform wound care FOLLOW-UP PLAN: Follow up phone call. SUPPLEMENTAL MATERIAL: [employer] Handout REFERRAL (RECOMMENDATION): None Electronically Signed By: Cary Stanford RN In Department: AMBULATORY SURGERY OPERATIVE NO Observed: 03/24/2018 Status: COMPLETED Source: [place] 2:44 PM [facility] REPOSITORY O ID: [id number] Author: Darwin Casarez Service: Pain Management Author Type: Physician Type: Operative Report Filed: 03/24/2018 2:50 PM Note Text: OPERATIVE/PROCEDURE REPORT LOG ID: [id number] Surgery/Procedure Date: 03/24/2018 Incision/Procedure Start Time: 2:03 PM Incision Close/Procedure End Time: 2:34 PM Surgeon(s)/Proceduralist(s) and Banquet Lead(s): Surgeon(s) and Role: * Darwin Casarez - Primary * Radha Donnelly) Cherry - Fellow No Additional Staff Procedure(s): Intraarticular facet joint injection bilateral Cervical C5-C6 Indications: Patient is here for diagnostic and/or therapeutic injection with severe impairment of function. Anesthesia: Procedural Sedation Procedure Details: SUBJECTIVE: Hira Barclay is a 57 year old female, who presents to [facility] for bilateralCervical Intra articular Facet Joint Injection. 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 The pain is located in the Pain is located back of the neck. Pain intensity ranges from 1 to 5 on a scale of 0-10. Current pain intensity is 4. I have reviewed the nurses notes the past medical, surgical, family and social history and available spine imaging was reviewed. Yes IV access was established. INFORMED CONSENT: Informed consent was obtained and signed electronically. We discussed the risks, benefits, alternative treatment options, staff participating in procedure and equipment to be used. No contraindications to proceeding with procedure. Patient agreed to proceed with procedure as planned. Yes Hira Barclay was transferred to the Block Room. After placement of routine monitors, the procedure was performed in the usual manner. Sign in and Time out were performed prior to administration of any medications and prior to initiation of procedure. Yes Conscious sedation: Yes: Anxiolysis; Versed 1 mg IV Continuous ECG, pulse oxymetry and cardiopulmonary monitoring was performed by dedicated nursing staff. Total sedation time was 37 minutes PROCEDURE: Level: bilaterally Facet joint injection C5-C6 Technique: Utilizing fluoroscopic imaging and correlation with MRI or CT imaging the correct facet joint levels were identified and skin was marked. Departmental standard localization technique was used identifying the lowest disc level as L5-S1 or counting down from C2 cervical vertebrae, except in cases where anomalous anatomy is present. The skin was anesthetized on right with approximately 1 cc of 1% Lidocaine at the C5-C6 level. Then a #25 gauge spinal needle was advanced to the proper location using C arm guidance. Needle placement was verified in at least 2 views. Aspiration revealed no evidence of blood or CSF. Filling of the joint capsule was verified with injection of iohexol contrast. Imaging was recorded. Then 0.25- 0.5 cc of a solution containing 1cc of 0.25% Marcaine and 6 mg of Celestone was administered to the joint joint. No paresthesias or pain were experienced. Needle(s) were then removed without complications. The skin was anesthetized on left with approximately 1 cc of 1% Lidocaine at the C5-C6 level. Then a #22 gauge spinal needle was advanced to the proper location using C arm guidance. Needle placement was verified in at least 2 views. Aspiration revealed no evidence of blood or CSF. Filling of the joint capsule was verified with injection of iohexol contrast. Imaging was recorded. Then 0.25- 0.5 cc of a solution containing 1cc of 0.25% Marcaine and 6 mg of Celestone was administered to the joint joint. No paresthesias or pain were experienced. Needle(s) were then removed without complications. Sign out was performed at end of procedure before any personnel had left the room. Yes She tolerated the procedure well and was then taken to the post-block recovery area in stable condition for further observation. I was assisted by Radha Carey MD and was present at bedside throughout entire procedure. No complications were encountered. Fellow assisted with fluoroscopic localization. Attending injected subcutaneous anesthetic. Fellow directed needle to target location. Attending injected contrast and injectate. ASSESSMENT: Pre Procedure Pain Level: same as above Post Procedure Pain Level: 0 on a scale of 0-10. Purposeful response to verbal or tactile stimulation: Yes PLAN: Patient is to complete post procedure pain diary and return for follow up in 2-3 weeks. Hira Barclay was discharged home in stable condition. Post op instructions reviewed with patient. Pre-Op/Pre-Procedure Diagnosis: Cervical Spondylosis Post-Op/Post-Procedure Diagnosis: Same Estimated Blood Loss: None Specimens: None Implantable Devices: None Drains: None Complications: None I performed the procedure with the assistance of a medical spine fellow. SIGNATURE: Darwin Casarez DO PATIENT NAME: Hira Barclay DATE: March 24, 2018 TIME: 2:44 PM PAGER/CONTACT #: [phone] HISTORY PHYSICAL Observed: 03/24/2018 Status: COMPLETED Source: [place] 1:04 PM [facility] [place] RE[facility]IT[facility] ID: [id number] Author: Radha Carey (Fel) Service: (none) Author Type: Fellow Type: HANDP Filed: 03/24/2018 1:12 PM Note Text: PROCEDURAL SEDATION HISTORY AND PHYSICAL EXAM SERVICE DATE: 03/24/2018 SERVICE TIME: 1:04 PM ASSESSMENT AND PLAN ASA Class: ASA Class:: Patient with mild systemic disease Principal Problem: Cervical spondylosis without myelopathy POA: Unknown Provisional Diagnosis/Treatment Plan: Cervical Spondylosis / Intraarticular facet joint injection bilateral Cervical C5-C6 SUBJECTIVE HPI: This is a 57 year old female who presents with chief complaint(s) of pain in the cervical spine. Patient reports no numbness or tingling. Pain rated 2/10 today, 6-10 at it's worse. PAST ANESTHESIA HISTORY: No history of adverse event PAST MEDICAL HISTORY: PAST MEDICAL HISTORY Diagnosis Date - Cervical disc herniation c5-c6, C6-C7 - Osteoporosis - PMH - PAST MEDICAL HISTORY OF ARTHRITIS - Unspecified asthma(493.90) PAST SURGICAL HISTORY: PAST SURGICAL HISTORY Procedure Laterality Date - DANDC, DIAG AND/OR THERAPEUTIC N/A - PAST SURGICAL HISTORY OF wisdom teeth - PAST SURGICAL HISTORY OF 06/09/14 [facility] Arthroplasty left hand MEDICATIONS: Prior to Admission medications as of 03/24/18 1239 Medication Sig Last Dose Taking methocarbamol (ROBAXIN) 500 mg tablet Take 1 tablet by mouth twice daily as needed. Past Week at Unknown time Yes fluticasone/salmeterol(ADVAIR DISKUS 250 MCG-50 MCG/DOSE FOR INHALATION) Take one(1) inhalation twice daily; rinse and gargle mouth with water after each use. 03/24/2018 at Unknown time Yes nortriptyline (PAMELOR) 10 mg capsule Take 1 tab nightly for 1 week, then increase to 2 tabs for 1 week, and then 3 tabs. Stop at effective dose. Unknown at Unknown time alendronate (FOSAMAX) 70 mg tablet Take 1 tablet by mouth once each week. Take with a full glass of water, on an empty stomach; do NOT lie down for 30minutes. 03/19/2018 meloxicam (MOBIC) 15 mg tablet Take 15 mg by mouth as needed. 12/23/2017 meloxicam (MOBIC) 15 mg tablet Take 1 tablet by mouth once daily. 12/23/2017 calcium-cholecalciferol, D3, (OSCAL+D 250) 250-125 mg-unit per tablet Take 1 tablet by mouth twice daily. 03/19/2018 ACETAMINOPHEN (TYLENOL ARTHRITIS PAIN ORAL) Take 1 tablet by mouth three times daily. Unknown at Unknown time IBUPROFEN IB ORAL Take by mouth as needed. 03/19/2018 MULTIVITAMIN TAB Take one(1) tablet daily. 03/19/2018 ALLERGIES: ALLERGIES Allergen Reactions - [place] Pollen [Other] asthma - Gabapentin Other: See Comments Dizziness - House Dust Shortness of Breath asthma - Shampoos [Parachlor* Rash OBJECTIVE PHYSICAL EXAM: Vital Signs: BP 118/67 Pulse (!) 56 Temp 37.2 ?C (99 ?F) (Temporal Artery) Resp 16 LMP 02/18/2010 SpO2 98% AIRWAY: Airway Visualization of Uvula: Yes Mouth opening greater than 2 fingerbreadths: Yes Neck Full Range of Motion: Yes LUNGS: Lungs clear to auscultation, Good diaphragmatic excursion, Negative findings: normal respiratory rate and rhythm and chest symmetric with normal A/P diameter CARDIAC: Normal S1 and S2; no rubs, murmurs, or gallops, Rhythm: regular rate and rhythm Brief vascular evaluation notes no swelling, redness or heat of the distal limbs. Peripheral pulses are present and symmetric. Muscle stretch reflexes are present and symmetric throughout. In muscle segments C-5 through T-1 with no apparent weakness. Focal sensory deficits are absent. Nerve root tension signs are absent. Painful arc of motion is absent in neck and low back. Deep palpation tenderness was absent. Radha Carey MD Spine Medicine Fellow PGY-5 March 24, 2018 PT ED Observed: 03/24/2018 Status: COMPLETED Source: [place] 12:31 PM [facility] REPOSITORY [facility] ID: [id number] Author: Teodora Orozco) KATRIN Montgomery Service: Nursing Author Type: Registered Nurse Type: Patient Education Filed: 03/24/2018 12:32 PM Note Text: PRE OP LEARNING ASSESSMENT PROCEDURE/SURGERY: PAIN MANAGEMENT: Cervical block READINESS TO LEARN COGNITIVE ABILITY: Alert and oriented MOTIVATION TO LEARN: Eager FAMILY SUPPORT: High - Very involved in pt care PATIENT LEARNS BEST BY: Individual Instruction Written Instruction - Hand-outs Verbal Instruction Multiple Methods FACTORS AFFECTING LEARNING: None PHYSICAL LIMITATIONS AFFECTING LEARNING: None Electronically Signed By: Teodora Montgomery RN In Department: AMBULATORY SURGERY HISTORY PHYSICAL Observed: 03/17/2018 Status: COMPLETED Source: [place] 9:06 AM [facility] RE[facility]IT[facility] ID: [id number] Author: Ayde Barragan Service: (none) Author Type: Physician Type: HANDP Filed: 03/17/2018 11:30 AM Note Text: Avis Bernal MD [address] [facility] [id number] PCP: Rishi Levine MD Accompanied by: unaccompanied CC: Headache HPI: Hira Barclay is a 57 year old year old, right-handed, woman who is seen at the request of Dr. Bernal for the evaluation and management of the patient's Headache. She has significant medical history including: asthma, osteoporosis, and cervical disc degeneration. 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 Fell backward on ice in 2003 and hit head and presented to the ED, who did CT brain at that time, which was normal. Her headaches started after she saw a chiropractor in 2010, and he did neck manipulations. Her headaches were constant and tended to go up the back of her head. Over the course of a year, they calmed down, but she re-exacerbated the pain after doing some heavy lifting. The pain has waxed and waned since, over periods of weeks, where it is worse after lifting or bending, and is better when maintaining a more fixed posture. The pain starts at the back of her head in the suboccipital region and spreads up slightly to the occiput. If she pushes on her suboccipital muscles, it reproduces the pain. She does feel that there is some upper shoulder pain and muscle spasm that may be related. She also feels like it can be bad enough that she feels she is in a fog. It is always there, but she has better and worse periods. The better periods follow periods of less activity, but have been less frequent and less in duration as well of late. She has to sleep on her back to help prevent headaches. She awakens multiple times per night because of the headache. Any flexion or extension of the head can precipitate headache. Lifting objects can precipitate headaches. The headache gets bad enough that she can not focus Sees Dr. Casarez for spine, and he did not think she had any neurologic deficits that would necessitate surgery. She saw Dr. Bernal, who did not think that the cervical DDD was causing the headache. She is scheduled for neck injections next week to help with upper back and neck pain. 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 Most common time of day for headache to begin: anytime. Location: occipital Quality: dull aching and pressure. Positional changes: Yes, worse sitting down Triggers: head flexion/extension, lifting weights, sleeping. Relieving factors: keeping her head straight, placing ice on back of neck, Robaxin and Ibuprofen. Iced coffee helps Associated symptoms: upper back pain, foggy feeling, occasional nausea, had vertigo twice, difficulty focusing. Onset of headache to peak:varies. Prodrome: none. Aura: None. Allodynia: No. Severity: 6-7/10 at worst. It is always there, and averages around a 3-4/10 Frequency of attacks: flares last weeks, resolves after a few weeks of keeping head straight and not lifting heavy objects; and gets triggered again in a few weeks after she tries to do an activity Duration of attacks: weeks, with treatment. Current treatment: Robaxin and ibuprofen prn Number of headache days/month: waxes and wanes, always has some level of pain Time missed from work or school: none Sleep: trouble falling asleep? Yes wakes up 2-3 time(s) per night,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 of degenerative disc changes as well as cervical cord compression. 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 Does report some issues with her balance at times.Since he was last seen she has been dealing with new symptoms in the mid thoracic spine. Recently had a bone density scan which showed evidence of osteopenia. She has been on long-term steroids for her asthma. Denies any significant motor deficits. Reports pain in the mid thoracic spine wean the scapula lower scapular region she reports significant aching and throbbing pain especially in the night while lying flat. Since last visit: She continues to deny bowel/bladder incontinence, denies fever, + night pain, denies unintentional weight loss, denies clumsiness of hands or dropping things, denies clumsiness of feet, tripping or falling. Denies any constitutional or myelopathic symptomatology. No interval change in PMHX, PSHX, Allergies, FamHx or ROS. PMH: PAST MEDICAL HISTORY Diagnosis Date - Cervical disc herniation c5-c6, C6-C7 - PMH - PAST MEDICAL HISTORY OF ARTHRITIS - Unspecified asthma(493.90) PSH: PAST SURGICAL HISTORY Procedure Laterality Date - DANDC, DIAG AND/OR THERAPEUTIC N/A - PAST SURGICAL HISTORY OF wisdom teeth - PAST SURGICAL HISTORY OF 06/09/14 [facility] Arthroplasty left hand Social history: Social History Marital status: Spouse name: Manjeet Years of education: 12+ Number of children: 0 Occupational History Occupation Employer Comment [employer] Social History Main Topics Smoking status: Never Smoker Smokeless status: Never Used Alcohol use: Yes Comment: RARE Drug use: No Sexual activity: Not Currently Fam history: FAMILY HISTORY Problem Relation Age of Onset - Hypertension Mother - Cancer Father PROSTATE - Cancer Sister thyroid Reviewed and updated with patient. ALLERGIES: House Dust; Shampoos [Parachlorometaxylenol]; [place] Pollen [Other] DATA REVIEW: Personally reviewed patient's prior cervical MRI imaging. On this imaging there is evidence of degenerative disc changes at the C4-C5 level. There is evidence of a sport spinal cord compression. There is evidence of mild foraminal narrowing bilaterally. OBJECTIVE: Vital Signs: BP 113/68 Pulse 63 Resp 16 LMP 02/18/2010 ASSESSMENT: General:Patient in no apparent distress, afebrile, well appearing Lungs:No labored breathing, symetric chest excursion, no tachypnia Heart:No lower limb edema, pulses palpable and symetric dorsalis pedis and radial, no cyanosis Abdominal:Non distended abdomen Neuro:Strength intact bilateral lower limbs Sensation intact bilateral lower limbs Reflexes intact bilateral lower limbs Strength intact in bilateral upper limbs Sensation intact in bilateral upper limbs Reflexes intact in bilateral upper limbs Except for diminished bilateral triceps reflex Muscular:Tenderness to palpation of bilateral Thoracic paraspinal muscles, Pain is quite exquisite over the spinous processes at approximately the T6-T7 level somewhat diminished above and below this level., Pain in this area worse and Cervical paraspinal muscles Skin:Head, neck, trunk, and extremities dry, intact and without lesions. 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 There is clearly evidence of degenerative disc changes and moderate to severe central canal stenosis at the C5-C6 level. There is evidence of cord compression without clear evidence of myelomalacia. Patient with recurrent episodes of severe nausea and incisions with extension of the cervical spine. Suspect portion of her symptoms may be related to cord compression and cervical spine. On exam patient without severe balance deficits, however, does have slight difficulty performing tandem gait. 2) patient now presents with increasing thoracic spine pain which is quite exquisite in the mid thoracic spine. This in combination with their diagnosis of osteopenia or concerning for potential thoracic compression fracture. I personally reviewed patient's thoracic x-ray which does not clearly show any evidence of compression fracture, however, on exam patient with exquisite tenderness to palpation over the spinous processes at approximately the T7 level. In light of this we have scheduled the patient for a thoracic MRI. 3) discussed surgical intervention for her cervical MRI findings. In light of her worsening pain worsening paresthesias into the upper limbs in her intermittent feelings of severe sickness with hyperextension of the cervical spine I advised the patient will schedule her for repeat cervical MRI and would schedule her for evaluation with one of our spine surgeons. Discussed treatment options including conservative measures, however, in light of the findings I advised her would certainly be reasonable to pursue surgical evaluation with recommendations. No clear evidence for interventional procedures in the cervical spine Darwin Casarez DO, MPH Staff Physician [facility] This document has been created with the use of voice recognition technology. It may contain inaccuracies: misspellings, inaccurate syntax or word sense that escaped review. PROGRESS Observed: 12/11/2017 Status: COMPLETED Source: [place] 9:39 AM [facility] [place] REPOSITORY HNO ID: [id number] Author: Rishi Levine Service: (none) Author Type: Physician Type: Progress Notes Filed: 12/11/2017 9:55 AM Note Text: Patient presents with: Back Pain [place] Eye: right HPI: Patient presents today for office visit for acute visit. Nursing Notes: Shahana Villa Ma 12/11/2017 8:50 AM Signed Patient continues with neck and upper back pain. Pt is taking ibuprofen, but no real improvement. Pain is so bad that she had to leave work early. She continues to get headaches. Pt's right eye is red since yesterday. Was already referred to pain management for her back pain. Had told her would defer treatment to them since has appt this month. Headache seems to occur with neck pain. Using nsaids. Worse with movement of the neck. No new radicular symptoms. Complains of right eye bothering her. No real changes in vision. No pain. No foreign body sensation. Eyes feel dry. No cough or congestion. No ear pain or sore throat. No mattering. No fever or chills. No other bleeding issues. Discussed avoiding overdoing nsaids MEDICATIONS: Current Outpatient Prescriptions: calcium-cholecalciferol, D3, (OSCAL+D 250) 250-125 mg-unit per tablet Take 1 tablet by mouth twice daily. alendronate (FOSAMAX) 70 mg tablet Take 1 tablet by mouth once each week. Take with a full glass of water, on an empty stomach; do NOT lie down for 30minutes. methocarbamol (ROBAXIN) 500 mg tablet Take 1 tablet by mouth twice daily as needed. ACETAMINOPHEN (TYLENOL ARTHRITIS PAIN ORAL) Take 1 tablet by mouth three times daily. IBUPROFEN IB ORAL Take by mouth. fluticasone/salmeterol(ADVAIR DISKUS 250 MCG-50 MCG/DOSE FOR INHALATION) Take one(1) inhalation twice daily; rinse and gargle mouth with water after each use. MULTIVITAMIN TAB Take one(1) tablet daily. No current facility-administered medications for this visit. ALLERGIES: ALLERGIES Allergen Reactions - House Dust Shortness of Breath asthma - Shampoos [Parachlor* Rash - [place] Pollen [Other] asthma PAST MEDICAL HISTORY Diagnosis Date - Cervical disc herniation c5-c6, C6-C7 - PMH - PAST MEDICAL HISTORY OF ARTHRITIS - Unspecified asthma(493.90) PAST SURGICAL HISTORY Procedure Laterality Date - DANDC, DIAG AND/OR THERAPEUTIC N/A - PAST SURGICAL HISTORY OF wisdom teeth - PAST SURGICAL HISTORY OF 06/09/14 [facility] Arthroplasty left hand FAMILY HISTORY Problem Relation Age of Onset - Hypertension Mother - Cancer Father PROSTATE - Cancer Sister thyroid Social History Marital status: Spouse name: Manjeet Years of education: 12+ Number of children: 0 Occupational History Occupation Employer Comment [employer] Social History Main Topics Smoking status: Never Smoker Smokeless status: Never Used Alcohol use: Yes Comment: RARE Drug use: No Sexual activity: Not Currently Reviewed current medications, allergies, past medical history, surgical history, family history and social history today. REVIEW OF SYSTEMS All other reviewed and negative other than HPI. VITALS: BP 118/64 Pulse 64 Resp 16 LMP 02/18/2010 Last 4 Encounter Wt Readings: Date: Wt: 09/29/2017 46.7 kg (103 lb) 09/27/2017 47.2 kg (104 lb) 08/12/2017 48.7 kg (107 lb 6.4 oz) 12/09/2016 49.8 kg (109 lb 12.8 oz) PHYSICAL EXAMINATION: General appearance: Well appearing, alert, in no acute distress, well-hydrated, well nourished. Skin: Skin color, texture, turgor normal, no suspicious rashes or lesions Head: Normocephalic, no masses, lesions, tenderness or abnormalities Eyes: Anicteric sclera. Pupils are equally round and reactive to light. Extraocular movements are intact. , small subconjunctival hernia. Ears: External ears normal, canals clear Nose/Sinuses: Nares normal, septum midline, mucosa normal, no drainage or sinus tenderness Neuro: Gait normal. Reflexes normal and symmetric. Sensation grossly intact. ASSESSMENT/PLAN: 1. Subconjunctival hemorrhage, non-traumatic, left - ICD9: 372.72, ICD10: H11.32 (primary diagnosis) - monitor. Call if symptoms worsen at all or if not better in one to two weeks 2. Neck pain - ICD9: 723.1, ICD10: M54.2 - Discussed risks and benefits of new medication with the patient. Advised them to call if any side effects or questions. - see pain management. - GABAPENTIN 300 MG CAPSULE Rishi Levine MD PROGRESS Observed: 11/03/2017 Status: COMPLETED Source: [place] 1:11 PM [facility] REPOSIT[facility] O ID: [id number] Author: Shahana (Pt) Ambrose Service: (none) Author Type: Physical Therapist Type: Progress Notes Filed: 11/03/2017 2:34 PM Note Text: Episode Visit Count: 1 Therapist That Will Oversee The Plan Of Care: Shahana Leo Start of Care Date: 11/03/17 Onset Date: 01/12/18 Patient Identified by Name and Date of : Yes REHABILITATION AND SPORTS THERAPY PHYSICAL THERAPY EVALUATION PLAN OF CARE: Assessment: Hira Barclay presents with the chief complaint of headaches and bilateral cervical pain. She presents with impairments of decreased ROM/ postural deficits. She may benefit from skilled therapy services to improve pain and function . Prognosis: Good Good due to: good overall health status;current objective clinical presentation Goals for Episode of Care: created on 11/03/17 through 01/01/18 Independent in a Home Exercise Program. Patient will decrease pain rating by 2 points to meet minimal clinical important difference for numeric pain rating scale. Restore cervical ROM to 30 degrees LF to decrease tightness in upper trap Sit 30 minutes without pain/symptoms to allow for improved tolerance to work Planned Interventions, Frequency, and Duration: Current Frequency: 1x every other week Duration: 8 weeks Total Number of Visits Planned: 4 Patient to be see for Planned Treatment Interventions: Therapeutic exercise;Manual therapy;Self-chcf management;Patient/Family/Caregiver Education;Modalities Modalities: Ultrasound PLAN FOR NEXT VISIT: Will trial manual therapy with lacrosse ball to upper trap. Corner pectoralis stretch Patient demonstrates good understanding of plan of care and treatment. The above goals and plan of care were discussed and agreed upon by patient/family. SUBJECTIVE: Hira Barclay is a 57 year old female seen today for headaches, pain in upper trap region tightness left greater than right. Functional Limitations: (lifting , looking up or down to much) Prior Level of Function: Independent without limitations Patient Goals: decrease sx Intake Information: Prescription present Previous Treatment: Self prescribed exercises;Heat;Ice ( mm relaxant, hot shower, , ice pack at night at shoulders.) Spine History Pain is Worse Always: ( sitting, lifting,looking up and down to much) Sleeping Position: Supine Sleep Affected by Pain: Pain awakens Pain Score: 5/10 Pain Location: Head - Right;Head - Left;Neck - Right;Neck - Left Description: Aching Frequency: Continuous OBJECTIVE MEASURES WITH LEVEL OF FUNCTION: Posture / Alignment Posture: Increased thoracic kyphosis ( with hips anterior in relaxed standing posture) Cervical Spine AROM Cervical Flexion: (20 degrees) Cervical Extension: ( deferred) Cervical Side-Bend Right: (20 degrees) Cervical Side-Bend Left: (30 degrees) Cervical Rotation Right: (70 degrees) Cervical Rotation Left: (80 degrees) Repeated Test Movements - Cervical Cervical RET - Symptoms After: worse ( pt reported) Education: Education Learning Preferences: Demonstration;Explanation;Performance;Printed Materials Barriers: None Learning/educational needs: Home exercise program;Plan of Care;Posture Education Provided: Yes, see treatment interventions for education provided Education Provided To: Patient Education Mode/Type: Demonstration;Explanation/Discussion;Performance Response to Education/Teach Back: States/Identifies TREATMENT: Evaluation Therapeutic Exercise: 1: active LF strethc 10 sec x2 2: active cervical rotation 10 sec hold x2 3: active scapular retraction 1x5 4: postural correction sitting with towel roll Skilled Intervention: Patient was educated in proper exercise technique and purpose for exercises. Skilled judgment was provided in selection of appropriate interventions. Provided verbal instruction for home exercise program to facilitate proper performance and compliance. Correct performance of therapeutic exercises was facilitated with verbal and visual cuing. Billing: [facility]: Evaluation - Low Complexity (14180) Therapeutic Exercise (00385): 1:1 time: 25 minutes (2 units: 23-37 mins) Total time: 45 minutes Shahana Leo PT CNTHERAPY Observed: 11/03/2017 Status: COMPLETED Source: [place] 10:30 AM [facility] OT/PT/Speech Visit (PTWS) HIRA BARCLAY ([id number]) 1960 F Date Time Provider Department 11/03/17 10:30 AM SHAHANA LEO (PT) PTWS Date Time Provider Department Center 11/03/2017 10:30 AM [id number], LISA (PT) PTWS [facility] Reason for Visit: PT Eval [747] Patient Education [91] PT Discharge [752] Reason For Visit History Recorded Primary Visit Diagnosis:Herniated cervical disc [M50.20] Other Visit Diagnosis:Acute midline thoracic back pain [M54.6] Allergies As of Date: 11/03/2017 Noted Allergy Reaction HOUSE DUST 01/23/2009 12 - Shortness of Breath Comments: asthma SHAMPOOS (PARACHLOROMETAXYLENOL) 01/05/2006 2 - Rash corn pollen [Other] 01/23/2009 Comments: asthma Date Reviewed: 09/29/2017 Reviewed by: Carlita Robledo LPN - Fully Assessed Prescriptions as of 11/03/2017 Sig: ALENDRONATE 70 MG TABLET Take 1 tablet by mouth once e* METHOCARBAMOL 500 MG TABLET Take 1 tablet by mouth twice * TYLENOL ARTHRITIS PAIN ORAL Take 1 tablet by mouth three * IBUPROFEN IB ORAL Take by mouth. * ADVAIR DISKUS 250 MCG-50 MCG/* Take one(1) inhalation twice * * MULTIVITAMIN TABLET Take one(1) tablet daily. Progress Notes: Shahana Leo, PT 11/03/2017 2:34 PM Signed Episode Visit Count: 1 Therapist That Will Oversee The Plan Of Care: Shahana Leo Start of Care Date: 11/03/17 Onset Date: 01/12/18 Patient Identified by Name and Date of : Yes REHABILITATION AND SPORTS THERAPY PHYSICAL THERAPY EVALUATION PLAN OF CARE: Assessment: Hira Barclay presents with the chief complaint of headaches and bilateral cervical pain. She presents with impairments of decreased ROM/ postural deficits. She may benefit from skilled therapy services to improve pain and function . Prognosis: Good Good due to: good overall health status;current objective clinical presentation Goals for Episode of Care: created on 11/03/17 through 01/01/18 Independent in a Home Exercise Program. Patient will decrease pain rating by 2 points to meet minimal clinical important difference for numeric pain rating scale. Restore cervical ROM to 30 degrees LF to decrease tightness in upper trap Sit 30 minutes without pain/symptoms to allow for improved tolerance to work Planned Interventions, Frequency, and Duration: Current Frequency: 1x every other week Duration: 8 weeks Total Number of Visits Planned: 4 Patient to be see for Planned Treatment Interventions: Therapeutic exercise;Manual therapy;Self-chcf management;Patient/Family/Caregiver Education;Modalities Modalities: Ultrasound PLAN FOR NEXT VISIT: Will trial manual therapy with lacrosse ball to upper trap. Corner pectoralis stretch Patient demonstrates good understanding of plan of care and treatment. The above goals and plan of care were discussed and agreed upon by patient/family. SUBJECTIVE: Hira Barclay is a 57 year old female seen today for headaches, pain in upper trap region tightness left greater than right. Functional Limitations: (lifting , looking up or down to much) Prior Level of Function: Independent without limitations Patient Goals: decrease sx Intake Information: Prescription present Previous Treatment: Self prescribed exercises;Heat;Ice ( mm relaxant, hot shower, , ice pack at night at shoulders.) Spine History Pain is Worse Always: ( sitting, lifting,looking up and down to much) Sleeping Position: Supine Sleep Affected by Pain: Pain awakens Pain Score: 5/10 Pain Location: Head - Right;Head - Left;Neck - Right;Neck - Left Description: Aching Frequency: Continuous OBJECTIVE MEASURES WITH LEVEL OF FUNCTION: Posture / Alignment Posture: Increased thoracic kyphosis ( with hips anterior in relaxed standing posture) Cervical Spine AROM Cervical Flexion: (20 degrees) Cervical Extension: ( deferred) Cervical Side-Bend Right: (20 degrees) Cervical Side-Bend Left: (30 degrees) Cervical Rotation Right: (70 degrees) Cervical Rotation Left: (80 degrees) Repeated Test Movements - Cervical Cervical RET - Symptoms After: worse ( pt reported) Education: Education Learning Preferences: Demonstration;Explanation;Performance;Printed Materials Barriers: None Learning/educational needs: Home exercise program;Plan of Care;Posture Education Provided: Yes, see treatment interventions for education provided Education Provided To: Patient Education Mode/Type: Demonstration;Explanation/Discussion;Performance Response to Education/Teach Back: States/Identifies TREATMENT: Evaluation Therapeutic Exercise: 1: active LF strethc 10 sec x2 2: active cervical rotation 10 sec hold x2 3: active scapular retraction 1x5 4: postural correction sitting with towel roll Skilled Intervention: Patient was educated in proper exercise technique and purpose for exercises. Skilled judgment was provided in selection of appropriate interventions. Provided verbal instruction for home exercise program to facilitate proper performance and compliance. Correct performance of therapeutic exercises was facilitated with verbal and visual cuing. Billing: [facility]: Evaluation - Low Complexity (60240) Therapeutic Exercise (44956): 1:1 time: 25 minutes (2 units: 23-37 mins) Total time: 45 minutes Shahana Leo PT Shahana Leo PT 12/28/2017 6:46 PM Signed [facility] REH[facility]IL[facility]ORTS [facility]ERAP[facility] PHYSICAL THERAPY DISCONTINUANCE OF CARE Plan of Care Period: Start of Care Date: 11/03/17 Last Visit Date:11/03/2017 Therapy Program: Patient did not return for follow up care as planned. Please refer to last visit note for interventions provided for this episode of care. Assessment: Unable to formally assess goal achievement due to non-compliance with therapy plan of care. Reason for Discontinuation of Care: Patient has not returned to therapy or scheduled additional follow-up appointments. Shahana Leo, PT ALLERGIES ALLERGIES DATE TYPE / CODE NAME / CODE REACTION SEVERITY SOURCE 10/06/20 Drug No Known Unknown [place] 18 Allergy/[id number] Allergies/[id number](RXN [facility] (SNOMED CT) [place]) Hospital Repository 03/17/20 DRUG GABAPENTIN OTHER: SEE C [place] 18 INGREDI/[id number] [facility] (SNOMED CT) [place] Repository 01/24/20 DRUG HOUSE DUST SHORTNESS OF [place] 09 INGREDI/[id number] [facility] (SNOMED CT) [place] Repository 01/24/20 Miscellaneous OTHER [place] 09 Allergy/[id number] [facility] (SNOMED CT) [place] Repository 01/06/20 DRUG PARACHLOROMETAXYLENOL RASH [place] 06 INGREDI/[id number] [facility] (SNOMED CT) [place] Repository ENCOUNTERS ENCOUNTERS ADMIT/DISCHARGE ACCOUNT ADMITTING ENCOUNTER LOCATION SOURCE NUMBER CLASS 11/08/2018/11/16/19 [id number] Ambulatory [place] [facility] [place] Repository 10/15/2018/10/15/20 [id number] Ambulatory [place] [facility] [place] Repository 10/08/2018/10/08/20 [id number] Ambulatory [place] [facility] [place] Repository 10/06/2018/10/06/20 [id number] [place] [address] [place] [address] ing:ED Repository 08/31/2018/09/01/20 [id number] Ambulatory [place] [facility] [place] Repository 08/23/2018/08/24/20 [id number] [facility] [place] Rep[facility] 08/18/2018/08/20/20 [id number] [facility] [place] [facility] 08/17/2018/08/18/20 [id number] Amb[facility] [place] [facility] Main [place] Repository 08/16/2018/08/22/20 [id number] Ambulatory [place] [facility] [place] Rep[facility] 08/13/2018/08/13/20 [id number] [facility] [place] Rep[facility] 07/23/2018/07/23/20 [id number] [facility] [place] Rep[facility] 07/20/2018/07/21/20 [id number] [facility] [place] Rep[facility] 07/14/2018/07/15/20 [id number] [facility] [place] Rep[facility] 04/27/2018/04/27/20 [id number] Amb[facility] [place] Rep[facility] 03/24/2018/03/24/20 [id number] HERMELINDO Ambulatory [address] Main [place] Repository 03/17/2018/03/18/20 [id number] [facility] [place] Rep[facility] 01/29/2018 [id number] [facility] [place] [facility] 01/29/2018/02/02/20 [id number] [facility] [place] [facility] 01/25/2018/01/27/20 [id number] Amb[facility] [place] [facility] [place] Repository 12/22/2017/12/22/19 [id number] Amb[facility] [place] [facility] [place] Rep[facility] 12/11/2017/12/11/19 [id number] Amb[facility] [place] [facility] Main [place] Rep[facility] 11/03/2017/11/04/19 [id number] Ambulatory [address] Repository PAYERS PAYERS ENCOUNTER GUARANTOR PAYER SUBSCRIBER SOURCE 10/06/2018 HIRA BILLINGS Primary HIRA Espinoza [id number] Insurance:[id number] WAGNERDOB[facility]: [id number] [place], [place] [id number] Repository 45582Knq: [phone]) Date: [phone] () [place], [place] [address]SA: 10/06/2018 Secondary HIRA Espinoza Insurance:MEDICAL WAGNERDOB: [facility] [id number] Hospital Number: Repository [id number] Date:[id number], [place] [address]TG: 10/06/2018 Tertiary NOT GIVENUNK Alexis Insurance:SELF PAY [facility] Number: Effective Repository Date:2018-10-06"
== END 2018-10-06 11:34 | disposition home or self-care (01) ==
LOC: ED 11:04
PROVIDERS: Emergency Provider Emergency Medicine; Family Provider Family Medicine; PCP Family Medicine
DX: S09.90XA Unspecified injury of head, initial encounter (principal); M50.90 Cervical disc disorder, unspecified, unspecified cervical region; W22.8XXA Striking against or struck by other objects, initial encounter; Y93.9 Activity, unspecified; Y92.9 Unspecified place or not applicable
CPT/HCPCS: 99283

== ENCOUNTER 2020-12-25 19:53 | Emergency (ER) | payer BC, SELFPAY ==
[2020-12-25 19:53] VITALS: BP 110/70; PULSE 88; RESP 16; TEMP 36.3; O2SAT 97; BMI 20.1
--- NOTE | 2020-12-25 20:12 | CT_ITS ---
STUDY: CT BRAIN WITHOUT CONTRAST REASON FOR EXAM: Female, 60 years old. injury RADIATION DOSAGE (If Supplied By Facility): CTDIvol = ( 44.99 ) mGy, DLP = ( 779.24 ) mGycm TECHNIQUE: Transaxial CT imaging of the brain was performed without administration of intravenous contrast material. Individualized dose optimization techniques were used for this CT. COMPARISON: 06/29/2013 FINDINGS: Normal soft tissue structures. Normal calvarium. Normal size ventricles and extra-axial spaces for the patient''s age. Normal white matter tracts of the cerebral hemispheres. Normal basal ganglia and thalami. Normal brainstem. Normal cerebellum. There is no intracranial hemorrhage. There are no findings of an acute ischemic infarction. Normal visualized paranasal sinuses. CT/Brain/Head without Contrast IMPRESSION: Normal unenhanced CT scan of the brain. Electronically Signed: Herbert Hermosillo MD at 20:34 EST , Service support ,
--- NOTE | 2020-12-25 20:41 | ED.VIS.GEN ---
History of Present Illness Chief Complaint: Head Injury Informant: Patient Narrative: Patient states her car door struck her right side of her head just above her ear. She notes a hematoma. She notes a headache. She took Tylenol prior to arrival. No loss of consciousness. She is not on any blood thinners. Past Medical History - Allergies and Home Meds Allergies/Adverse Reactions: Allergies No Known Allergies Allergy (Verified 12/25/20 19:53) Primary Care Physician: Rishi Levine MD [Primary Care Provider] - Past Medical History: - - Asthma Surgical History: noncontributory Smoking Status: Never smoker Drugs: None Review of Systems General: Denies: Chills, Fever, Sweats Eyes: Denies: Visual changes - bilaterally, Diplopia ENT: Denies: Rhinorrhea, Sore throat Cardiovascular: Denies: Chest pain, Palpitations Respiratory: Denies: Dyspnea, Cough, Dyspnea on exertion Gastrointestinal: Denies: Abdominal pain, Nausea, Vomiting, Diarrhea, Melena, Hematochezia Genitourinary: Denies: Dysuria, Hematuria, Frequency Musculoskeletal: Denies: Back pain, Extremity Pain Skin: Denies: Rash, Wounds Neurological: Reports: Headache. Denies: Weakness, Numbness Physical Exam Vital Signs/Narrative: Vital Signs Temp Pulse Resp BP Pulse Ox 12/25/20 19:53 97.3 F L 88 16 110/70 97 Inital Vital Signs reviewed: Yes General: Well nourished, Well developed, No Acute Distress Head: Normocephalic, Trauma - Small hematoma just above right ear palpable bony depression., - - No evidence of basilar skull fracture Eyes: Perrl, EOMI ENT: Moist mucous membranes, No rhinorrhea Neck: Supple, Nontender Cardiovascular: Regular rate, Regular rhythm, No murmurs Respiratory: No distress, CTA bilaterally, Chest nontender Abdomen: Soft, Nontender, Nondistended, Normal bowel sounds Back: Nontender, Normal Inspection Extremities: Nontender, No edema Skin: Normal color, No rash Neurological: Alert, Oriented x3, Cranial nerves II-XII grossly intact, Normal Strength, Normal Sensation, Normal Gait, - - GCS is 15 Psychological: Normal affect, Normal Mood Diagnostic/Tx/Re-eval Clinical Impression(s) from Imaging Studies Brain CT 12/25/20 20:12 IMPRESSION: Normal unenhanced CT scan of the brain. Electronically Signed: Herbert Hermosillo MD at 20:34 EST , Service support , - Medical Decision Making CT the head was negative. Patient will be discharged home return instructions given patient notes understanding. ED Disposition - Plan for ED Patient: Disposition: Home or Assisted Living Diagnosis: Head injury, Scalp contusion Instructions: ED Scalp Contusion Referrals: Rishi Levine MD [Primary Care Provider] - As Needed
[2020-12-25 20:53] VITALS: BP 108/62; PULSE 70; RESP 16; O2SAT 99
== END 2020-12-25 20:53 | disposition home or self-care (01) ==
PROVIDERS: Emergency Provider Emergency Medicine; PCP Family Medicine
DX: S00.03XA Contusion of scalp, initial encounter (principal); W22.8XXA Striking against or struck by other objects, initial encounter; Y93.9 Activity, unspecified; Y92.9 Unspecified place or not applicable; J45.909 Unspecified asthma, uncomplicated
CPT/HCPCS: 70450; 99282

== ENCOUNTER → 2023-01-17 | Outpatient (CLI) | payer BC, SELFPAY ==
[2023-01-17 08:34] LABS: AST(SGOT) 22 U/L (15-37); Alanine Aminotransfer ALT/SGPT 32 U/L (13-56); Albumin, Serum 3.7 g/dL (3.2-5.0); Alkaline Phosphatase 54 U/L (45-117); Cholesterol 185 mg/dL (200); Globulin 3.3 g/dL (2.2-4.2); High Density Lipoprotein 85 mg/dL; Triglycerides 56 mg/dL; Very Low Density Lipoprotein 11 mg/dL (5-40)
== END | disposition home or self-care (01) ==
LOC: LAB 07:31
PROVIDERS: PCP Family Medicine; Visit Provider Internal Medicine Cardiovascular Disease
DX: R00.2 Palpitations (principal)
CPT/HCPCS: 36415; 80061; 80076

== ENCOUNTER → 2023-03-03 | Outpatient (CLI) | payer BC, SELFPAY ==
--- NOTE | 2023-03-03 13:25 | ECHOD_ITS ---
Reason For Study: ARRHYTHMIA Procedure This was a 2D Doppler, Color Flow transthoracic echocardiogram. Exam performed in department. Left Ventricle Normal LV size. Left ventricular systolic function is normal. The estimated ejection fraction is 60 %. Stage 1 diastolic dysfunction. No regional wall motion abnormalities noted. Right Ventricle Normal RV size. Normal systolic function. Atria Normal left atrium. Normal right atrium. Mitral Valve Normal mitral valve. Tricuspid Valve Normal tricuspid valve. Mild tricuspid valve insufficiency. Pulmonary artery systolic pressure is 25 mmHg. Aortic Valve Normal aortic valve. Trisinus/trileaflet aortic valve. Pulmonic Valve Normal pulmonic valve. Great Vessels Normal aortic root. The pulmonary artery is normal size. Normal inferior vena cava. Pericardium/Pleural No pericardial effusion. MMode/2D Measurements & Calculations LVIDd: 3.9 cm IVSd: 0.89 cm Ao root diam: 3.2 cm LVIDs: 2.7 cm LVPWd: 0.93 cm RVDd: 2.8 cm FS: 31.9 % LVAd ap4: 24.8 cm2 LVAd ap2: 20.4 cm2 SV(MOD-sp4): 41.0 ml LVLd ap4: 7.5 cm LVLd ap2: 7.6 cm EDV(MOD-sp4): 68.9 ml EDV(MOD-sp2): 45.6 ml EDV(sp4-el): 69.8 ml EDV(sp2-el): 46.7 ml LVAs ap4: 14.7 cm2 LVAs ap2: 12.0 cm2 LVLs ap4: 6.5 cm LVLs ap2: 6.6 cm ESV(MOD-sp4): 27.9 ml ESV(MOD-sp2): 19.2 ml ESV(sp4-el): 28.3 ml ESV(sp2-el): 18.6 ml EF(MOD-sp4): 59.5 % EF(MOD-sp2): 58.0 % EF(sp4-el): 59.5 % SV(MOD-sp2): 26.4 ml SV(sp4-el): 41.5 ml LA dimension(2D): 2.0 cm RA A4 area: 13.7 cm2 Time Measurements MV dec time: 0.20 sec Doppler Measurements & Calculations MV E max willy: 57.3 cm/sec Lat Peak E' Willy: 10.3 cm/sec Med Peak E' Willy: 9.4 cm/sec MV A max willy: 65.1 cm/sec E/E' lat: 5.6 E/E' med: 6.1 MV E/A: 0.88 MV dec slope: 293.0 cm/sec2 Ao V2 max: 107.9 cm/sec LV V1 max: 88.2 cm/sec Ao max P.7 mmHg LV V1 max P.1 mmHg Ao V2 mean: 74.9 cm/sec LV V1 mean P.5 mmHg Ao mean P.6 mmHg LV V1 mean: 56.2 cm/sec Ao V2 VTI: 26.6 cm LV V1 VTI: 18.0 cm AV (velocity ratio): 0.68 PA V2 max: 74.2 cm/sec TR max willy: 236.0 cm/sec TR max P.3 mmHg ECHO/Echo Complete Interpretation Summary Normal LV size. Left ventricular systolic function is normal. The estimated ejection fraction is 60 %. Stage 1 diastolic dysfunction. Structurally normal valves. Ordering Physician: Hermilo Ross Referring Physician: Rishi Levine Performed By: Syeda Clement, VERA, RVT
--- NOTE | 2023-03-03 13:33 | CT_ITS ---
STUDY: CT CHEST WITHOUT CONTRAST REASON FOR EXAM: Female, 62 years old. ARRYTHMIA. Cardiac over read examination. RADIATION DOSAGE (If Supplied By Facility): CTDIvol = ( 12.19 ) mGy, DLP = ( 170.66 ) mGycm TECHNIQUE: Transaxial imaging was performed without the administration of intravenous contrast material. Individualized dose optimization techniques were used for this CT. COMPARISON: No relevant priors. FINDINGS: CHEST The lungs are normal. There is no demonstrated pleural abnormality. Pericardial thickening suggestive of a small pericardial effusion. No coronary artery calcification is seen on this examination. Normal mediastinum. Normal hilar regions. Normal unenhanced pulmonary arteries. Normal aorta arch and descending thoracic aorta. Normal osseous structures. There is no demonstrated abnormality of the visualized upper abdomen. CT/Limited Chest CT Cardiac Only IMPRESSION: Small pericardial effusion. No significant coronary artery calcification is seen. Electronically Signed: Sacha Bartholomew MD at 14:25 EDT ,
--- NOTE | 2023-03-03 17:23 | CA.SCORE ---
Calcium Scoring Date of Study:: 03/03/23 Indications Indications: Family history Coronary Calcium Scoring: High-resolution Computed Tomographic imaging of the chest was performed on [03/03/2023], with particular attention paid to the coronary arteries. Images from the examination were analyzed for the presence and extent of coronary artery calcification , using coronary calcium quantification software. The patient tolerated the procedure well and there were no complications. The results of the coronary calcification analysis are provided below. Findings Coronary Artery Left Main (LM): 0 Left Anterior Descending (LAD): 0 Left Circumflex (LCX): 0 Right Coronary Artery (RCA): 0 Total Agatston Score: 0 Percentile Rankin% Calcium Scoring Interpretation: Different methods to categorize the overall amount of coronary plaque. Overall amount CAC SIS Visual of coronary plaque P1 Mild -100 <2 1-2 vessels with mild amount of plaque P2 Moderate 101-300 3-4 1-2 vessels with moderate amount, 3 vessels with mild amount of plaque P3 Severe 301-999 5-7 3 vessels with moderate amount, 1 vessel with severe amount of plaque P4 Extensive >1000 >8 2-3 vessels with severe amount of plaque Conclusion: No significant atherosclerotic plaquing noted.
== END | disposition home or self-care (01) ==
PROVIDERS: PCP Family Medicine; Referring Provider Internal Medicine Cardiovascular Disease; Visit Provider Internal Medicine Cardiovascular Disease
DX: R00.2 Palpitations (principal); I49.9 Cardiac arrhythmia, unspecified; I31.39 Other pericardial effusion (noninflammatory)
CPT/HCPCS: 75571; 76380; 93306

== ENCOUNTER → 2023-05-26 | Outpatient (CLI) | payer BC, SELFPAY ==
[2023-05-31 11:07] LABS: HPV APTIMA, High Risk Negative (Negative)
== END | disposition home or self-care (01) ==
PROVIDERS: PCP Family Medicine; Visit Provider Obstetrics & Gynecology
DX: Z12.4 Encounter for screening for malignant neoplasm of cervix (principal)
CPT/HCPCS: 87624; 88175; G0145